=== PATIENT | male | born 1935 | race Caucasian/White ===

== ENCOUNTER 2017-01-28 18:30 | Emergency (ER) | payer MEDICARE, BC ==
[2017-01-28] MEDS ORDERED: cloNIDine HCL 0.2 MG TAB PO STA (19:39)
[2017-01-28 20:01] VITALS: RESP 18
--- NOTE | 2017-01-28 20:13 | XR ---
EXAMINATION TYPE: XR abdomen acute w cxr DATE OF EXAM: 01/28/2017 COMPARISON: NONE HISTORY: Pain TECHNIQUE: Single view of the chest and 2 views of the abdomen are submitted. FINDINGS: Single view of the chest fails demonstrate evidence for acute pulmonary disease. There is no evidence for pneumoperitoneum. The bowel gas pattern is unremarkable as there is air throughout nondilated small and large bowel. No sizeable air fluid levels.No mass effects are seen. No unusual calcifications. IMPRESSION: 1. Nonspecific nonobstructive bowel gas pattern. Mild fecal stasis.
--- NOTE | 2017-01-28 21:39 | ED ---
General Adult HPI - General Chief complaint: Abdominal Pain Stated complaint: neck pain Time Seen by Provider: 01/28/17 19:12 Source: patient, RN notes reviewed Mode of arrival: ambulatory Limitations: no limitations - History of Present Illness Initial comments: 81-year-old male presenting with chief complaint of abdominal pain. Patient states he had abdominal pain approximately 2 days ago. Pain is currently resolved. At that time he was constipated and straining to have a bowel movement. Patient does have history of chronic constipation secondary to pain medication which she takes for his chronic neck pain. He denies any nausea or vomiting. Patient denies chest pain or shortness of breath. He has taken stool softeners in the past but is not currently taking any. Patient also complains of neck pain which is chronic in nature, patient states he was previously relieved by Vicodin but that is no longer working. Patient denies fever or chills. He was evaluated at the [facility] for anxiety earlier in the day. - Related Data Home Medications Medication Instructions Recorded Confirmed Amiodarone [Cordarone] 200 mg PO HS 01/27/14 01/28/17 Aspirin 81 mg PO DAILY 01/27/14 01/28/17 Potassium Chloride [Klor-Con 10] 10 meq PO HS 01/27/14 01/28/17 Simvastatin [Zocor] 20 mg PO HS 01/27/14 01/28/17 ALPRAZolam [Xanax] 0.5 mg PO TID 01/28/17 01/28/17 Furosemide [Lasix] 20 mg PO DAILY 01/28/17 01/28/17 Losartan/Hydrochlorothiazide 1 tab PO HS 01/28/17 01/28/17 [Losartan-Hctz 100-12.5 mg Tab] Minoxidil [Loniten] 2.5 mg PO DAILY 01/28/17 01/28/17 Mirtazapine [Remeron] 45 mg PO HS 01/28/17 01/28/17 Spironolactone [Aldactone] 25 mg PO DAILY 01/28/17 01/28/17 Testosterone [Androgel 1.62% Gel 2.5 gram TOPICAL DAILY 01/28/17 01/28/17 Packet] amLODIPine [Norvasc] 5 mg PO BID 01/28/17 01/28/17 cloNIDine HCL 0.3 mg PO DAILY 01/28/17 01/28/17 hydrALAZINE HCL [Apresoline] 50 mg PO TID 01/28/17 01/28/17 Previous Rx's Medication Instructions Recorded Polyethylene Glycol 3350 [Miralax] 17 gm PO DAILY #527 gm 01/28/17 Allergies Allergy/AdvReac Type Severity Reaction Status Date / Time Beta-Blockers Allergy Unknown Verified 01/28/17 19:11 (Beta-Adrenergic Bloc Review of Systems ROS Statement: Those systems with pertinent positive or pertinent negative responses have been documented in the HPI. ROS Other: All systems not noted in ROS Statement are negative. Constitutional: Denies: fever, chills Respiratory: Denies: cough Cardiovascular: Denies: chest pain, palpitations Endocrine: Denies: fatigue Gastrointestinal: Reports: abdominal pain, constipation. Denies: vomiting, diarrhea Neurological: Denies: headache Past Medical History Past Medical History: GERD/Reflux, Hyperlipidemia, Hypertension, Myocardial Infarction ([place]) Additional Past Medical History / Comment(s): TRIP CABG IN , DEBIF/PM IN 2011 ; NECK PAIN Last Myocardial Infarction Date:: 06/29/1998 History of Any Multi-Drug Resistant Organisms: None Reported Past Surgical History: Coronary Bypass/CABG, Joint Replacement Additional Past Surgical History / Comment(s): left knee Past Anesthesia/Blood Transfusion Reactions: No Reported Reaction Type of Cardiac Device: Unknown Device Placement Date:: 02/28/2012 Past Psychological History: No Psychological Hx Reported Smoking Status: Former smoker Past Alcohol Use History: None Reported Past Drug Use History: None Reported General Exam Limitations: no limitations General appearance: alert, in no apparent distress Head exam: Present: atraumatic, normocephalic Eye exam: Present: normal appearance, PERRL. Absent: scleral icterus ENT exam: Present: normal exam, mucous membranes moist Neck exam: Present: normal inspection, full ROM. Absent: tenderness Respiratory exam: Present: normal lung sounds bilaterally. Absent: respiratory distress Cardiovascular Exam: Present: regular rate, normal rhythm GI/Abdominal exam: Present: soft. Absent: distended, tenderness, guarding, rebound Extremities exam: Present: normal inspection, normal capillary refill. Absent: pedal edema Neurological exam: Present: alert, oriented X3. Absent: motor sensory deficit Psychiatric exam: Present: normal affect, normal mood Skin exam: Present: warm, dry Course Vital Signs 01/28/17 01/28/1701/28/17 18:53 20:00 21:23 Temperature 98.2 F Pulse Rate 89 76 80 Respiratory 20 18 18 Rate Blood Pressure 185/80 169/80 171/80 O2 Sat by Pulse 97 98 95 Oximetry - Reevaluation(s) Reevaluation #1: 01/28/17 21:34 Patient was evaluated, repeat vitals were obtained given his blood pressure on presentation. Patient was given a dose of oral clonidine which is his normal home medication and repeat blood pressure was improved. Medical Decision Making - Medical Decision Making 81-year-old male presenting for evaluation of abdominal pain. Pain was 2 days ago and associated with straining during a bowel movement. Pain is currently resolved. Abdominal examination is unremarkable. Blood pressure was initially high in triage, he was given his normal dose of clonidine and repeat blood pressures improved. Patient remains asymptomatic in the emergency department. No nausea or vomiting. Other vital signs are stable. Patient also complains of neck pain which is chronic and unchanged today. X-ray of the abdomen does show significant retained feces. Patient will be prescribed MiraLAX and is encouraged to follow up with his primary care physician. Return to the emergency department with worsening symptoms. Disposition Clinical Impression: Abdominal pain Disposition: HOME SELF-CARE Condition: Good Instructions: Abdominal Pain (ED), Constipation (ED) Prescriptions: Polyethylene Glycol 3350 [Miralax] 17 gm PO DAILY #527 gm Referrals: Gunner Peña MD [Primary Care Provider] - 1-2 days
[2017-01-28 22:00] VITALS: BP 134/87; PULSE 87; TEMP 97.8
== END 2017-01-28 22:00 | disposition home or self-care (01) ==
LOC: EC 18:30
DX: R10.9 Unspecified abdominal pain (principal); I10 Essential (primary) hypertension; E78.5 Hyperlipidemia, unspecified; Z87.891 Personal history of nicotine dependence; Z88.8 Allergy status to other drugs, medicaments and biological substances; Z79.82 Long term (current) use of aspirin; Z79.899 Other long term (current) drug therapy
CPT/HCPCS: 74022; 99284

== ENCOUNTER → 2018-03-07 | Outpatient (CLI) | payer MEDICARE, BC ==
--- NOTE | 2018-03-08 07:41 | CT ---
EXAMINATION TYPE: CT abdomen pelvis w con DATE OF EXAM: 03/07/2018 COMPARISON: None HISTORY: Difficulty urinating for 1-[address] DLP: 1651 mGycm Automated exposure control for dose reduction was used. TECHNIQUE: Helical acquisition of images was performed from the lung bases through the pelvis. CONTRAST: Performed with Oral Contrast and with IV Contrast, patient injected with 100 mL of Isovue 300. FINDINGS: LUNG BASES: Scattered subsegmental atelectasis is seen at the lung bases. Heart is enlarged. LIVER/GB: Liver enhances homogeneously. There is slight hyperemia of the gallbladder wall, likely an incidental finding as there is no right upper quadrant fat stranding changes or dilation of the commo n bile duct. PANCREAS: Pancreatic parenchyma enhances homogeneously. SPLEEN: No significant abnormality is seen. Small splenules are seen adjacent to the seneca spleen. ADRENALS: No nodularity or thickening. KIDNEYS: Within the left perirenal space there is an approximately 10.6 x 5.2 x 13.1 cm multiloculate d fluid collection with a hyperdense, likely enhancing septa seen on sagittal image 59 and axial imag e 46. A portion of this abuts the renal cortex on axial image 42, however predominantly this appears separate from the kidney within the retroperitoneum. This is predominantly fluid attenuated. Multiple other renal cysts are noted on the left measuring up to 8.4 and 9.5 cm. Some of these extend into th e renal sinus but are nonobstructive as there is no evidence of left-sided hydronephrosis or asymmetr ic enhancement of the kidneys. Mild perinephric fat stranding is seen on the right with no evidence o f hydronephrosis or focal right renal lesion. FREE AIR: No free air is visualized. URINARY BLADDER: A large amount of air are seen within the urinary bladder and there is mild left la teral urinary bladder wall thickening on series 3 image 77 measuring up to 5 mm. No surrounding infla mmatory changes identified. No direct fistulous communication is seen with adjacent bowel. ADENOPATHY: No greater than 1 cm short axis lymph node within the abdomen or pelvis. OSSEOUS STRUCTURES: Multilevel moderate degenerative change of the spine is seen. BOWEL: No dilated large or small bowel. No gross evidence of fistula. OTHER: Chronic infrarenal aortic dissection begins just below the renal arteries on series 3 image 37 and does not appear to extend into the common iliac arteries. Abdominal aorta measures up to 3.3 cm and is slightly dilated. IMPRESSION: 1. LEFT RETROPERITONEAL MULTILOCULATED 10.6 CM CYSTIC LESION WITH A HYPERDENSE LIKELY ENHANCING SEPTA . ALTHOUGH THIS COULD POSSIBLY CONNECT TO THE LEFT KIDNEY AND SIMPLY RELATE TO A LARGE EXOPHYTIC CYST THE ALTERNATIVE POSSIBILITY OF CYSTIC RETROPERITONEAL NEOPLASM SHOULD BE CONSIDERED GIVEN ONLY A THI N POSSIBLE CONNECTION TO THE LEFT KIDNEY AND ASPIRATION WITH ATTENTION TO THE INFERIOR SEPTAL SHOULD BE CONSIDERED. 2. LARGE AMOUNT OF AIR WITHIN THE URINARY BLADDER WITHOUT EVIDENCE OF ENTEROVESICULAR OR COLOVESICULA R FISTULA. MILD URINARY BLADDER WALL THICKENING IS ALSO APPRECIATED AND AIR COULD RELATE TO CYSTITIS. 3. CHRONIC INFRARENAL AORTIC DISSECTION AND MILD AORTIC ANEURYSMAL DILATATION AT THIS LEVEL MEASURING 3.3 CM.
== END | disposition home or self-care (01) ==
LOC: RADCTMAIN 13:45
PROVIDERS: ATTEND Urology
DX: K68.9 Other disorders of retroperitoneum (principal)
CPT/HCPCS: 82565; 84520; 74177; 36415; Q9967

== ENCOUNTER 2018-04-16 14:15 | Inpatient (IN) | payer MEDICARE, BC ==
--- NOTE | 2018-04-16 14:27 | ED ---
SOB HPI - General Chief Complaint: Shortness of Breath Stated Complaint: Chest pain Time Seen by Provider: 04/16/18 14:15 Source: patient, EMS, RN notes reviewed Mode of arrival: EMS Limitations: no limitations - History of Present Illness Initial Comments: This is a 82-year-old male was brought in by EMS after presenting to his doctor' s office with complaints of one week of shortness of breath and exertional dyspnea with some chest pain. He currently is chest pain-free. He denies any fevers chills or sweats he has a history of an [place] 41 years ago. No other complaints at this time MD Complaint: shortness of breath, chest pain - Related Data Home Medications Medication Instructions Recorded Confirmed Amiodarone [Cordarone] 200 mg PO DAILY 01/27/14 04/16/18 Potassium Chloride [Klor-Con 10] 10 meq PO BID 01/27/14 04/16/18 Simvastatin [Zocor] 20 mg PO HS 01/27/14 04/16/18 ALPRAZolam [Xanax] 0.5 mg PO BID PRN 01/28/17 04/16/18 amLODIPine [Norvasc] 5 mg PO BID 01/28/17 04/16/18 Carvedilol [Coreg] 12.5 mg PO BID 04/16/18 04/16/18 Cholecalciferol [Vitamin D3] 1,000 unit PO DAILY 04/16/18 04/16/18 Fexofenadine HCl [Laura Allergy] 180 mg PO DAILY PRN 04/16/18 04/16/18 Flaxseed Oil [Jackson-3 Flaxseed Oil] 1,000 mg PO DAILY 04/16/18 04/16/18 Fluticasone Nasal [place] [Flonase 2 spr EA NOSTRIL DAILY 04/16/18 04/16/18 Nasal [place]] Fluticasone Nasal [place] [Flonase 2 sprays EA NOSTRIL DAILY 04/16/18 04/16/18 Nasal [place]] Furosemide [Lasix] 40 mg PO BID 04/16/18 04/16/18 Ibuprofen/Diphenhydramine HCl 1 cap PO HS PRN 04/16/18 04/16/18 [Advil Pm Liqui-Gels] L.acidoph,Paracasei, B.lactis 1 cap PO HS 04/16/18 04/16/18 [Probiotic] Linaclotide [Linzess] 72 mcg PO DAILY 04/16/18 04/16/18 Losartan Potassium 100 mg PO DAILY 04/16/18 04/16/18 Mirtazapine [Remeron] 15 mg PO HS 04/16/18 04/16/18 Multivitamins, Thera [Multivitamin 1 tab PO DAILY 04/16/18 04/16/18 (formulary)] Nebivolol [Bystolic] 5 mg PO DAILY 04/16/18 04/16/18 Sertraline [Zoloft] 50 mg PO DAILY 04/16/18 04/16/18 Simethicone 80 mg PO QID PRN 04/16/18 04/16/18 Tamsulosin [Flomax] 0.4 mg PO DAILY 04/16/18 04/16/18 hydrALAZINE HCL [Apresoline] 100 mg PO TID 04/16/18 04/16/18 Allergies Allergy/AdvReac Type Severity Reaction Status Date / Time Beta-Blockers Allergy Unknown Verified 04/16/18 14:49 (Beta-Adrenergic Bloc NORCO AdvReac ADDICTIVE Uncoded 04/16/18 14:49 Review of Systems ROS Statement: Those systems with pertinent positive or pertinent negative responses have been documented in the HPI. ROS Other: All systems not noted in ROS Statement are negative. Past Medical History Past Medical History: GERD/Reflux, Hyperlipidemia, Hypertension, Myocardial Infarction ([place]) Additional Past Medical History / Comment(s): TRIP CABG IN , DEBIF/PM IN 2011 ; NECK PAIN Last Myocardial Infarction Date:: 06/29/1998 History of Any Multi-Drug Resistant Organisms: None Reported Past Surgical History: Coronary Bypass/CABG, Joint Replacement Additional Past Surgical History / Comment(s): left knee Past Anesthesia/Blood Transfusion Reactions: No Reported Reaction Type of Cardiac Device: Unknown Device Placement Date:: 02/28/2012 Past Psychological History: No Psychological Hx Reported Smoking Status: Former smoker Past Alcohol Use History: None Reported Past Drug Use History: None Reported General Exam - General Exam Comments Initial Comments: This is a well-developed well-nourished awake alert oriented 3 male Limitations: no limitations General appearance: alert, in no apparent distress Head exam: Present: atraumatic, normocephalic, normal inspection Eye exam: Present: normal appearance, PERRL, EOMI. Absent: scleral icterus, conjunctival injection, periorbital swelling ENT exam: Present: normal exam, mucous membranes moist Neck exam: Present: normal inspection. Absent: tenderness, meningismus, lymphadenopathy Respiratory exam: Present: normal lung sounds bilaterally. Absent: respiratory distress, wheezes, rales, rhonchi, stridor Cardiovascular Exam: Present: regular rate, normal rhythm, normal heart sounds. Absent: systolic murmur, diastolic murmur, rubs, gallop, clicks GI/Abdominal exam: Present: soft, normal bowel sounds. Absent: distended, tenderness, guarding, rebound, rigid Extremities exam: Present: normal inspection, full ROM, normal capillary refill. Absent: tenderness, pedal edema, joint swelling, calf tenderness Back exam: Present: normal inspection Neurological exam: Present: alert, oriented X3, CN II-XII intact Psychiatric exam: Present: normal affect, normal mood Skin exam: Present: warm, dry, intact, normal color. Absent: rash Course Vital Signs 04/16/18 04/16/18 14:18 14:26 Temperature 97.8 F Pulse Rate 66 Respiratory 16 16 Rate Blood Pressure 154/80 O2 Sat by Pulse 100 Oximetry Medical Decision Making - Medical Decision Making Patient had no further chest pains his arrival. Patient will be admitted I did discuss case with the admitting physician. - Lab Data Result diagrams: 04/16/18 14:34 04/16/18 14:34 Lab Results 04/16/18 04/16/18 04/16/18 Range/Units 14:34 14:34 14:34 WBC 6.3 (3.8-10.6) k/uL RBC 3.85 L (4.30-5.90) m/uL Hgb 11.2 L (13.0-17.5) gm/dL Hct 33.0 L (39.0-53.0) % MCV 85.8 (80.0-100.0) fL MCH 29.1 (25.0-35.0) pg MCHC 33.9 (31.0-37.0) g/dL RDW 15.6 H (11.5-15.5) % Plt Count 152 (150-450) k/uL Neutrophils % 80 % Lymphocytes % 10 % Monocytes % 7 % Eosinophils % 2 % Basophils % 0 % Neutrophils # 5.1 (1.3-7.7) k/uL Lymphocytes # 0.6 L (1.0-4.8) k/uL Monocytes # 0.4 (0-1.0) k/uL Eosinophils # 0.1 (0-0.7) k/uL Basophils # 0.0 (0-0.2) k/uL PT (9.0-12.0) sec INR (<1.2) APTT (22.0-30.0) sec Sodium 125 L (137-145) mmol/L Potassium 4.3 (3.5-5.1) mmol/L Chloride 94 L (98-107) mmol/L Carbon Dioxide 18 L (22-30) mmol/L Anion Gap 13 mmol/L BUN 15 (9-20) mg/dL Creatinine 1.04 (0.66-1.25) mg/dL Est GFR (CKD-EPI)AfAm 77 (>60 ml/min/1.73 sqM) Est GFR (CKD-EPI)NonAf 67 (>60 ml/min/1.73 sqM) Glucose 104 H (74-99) mg/dL Calcium 8.6 (8.4-10.2) mg/dL Magnesium 1.9 (1.6-2.3) mg/dL Total Bilirubin 0.8 (0.2-1.3) mg/dL AST 24 (17-59) U/L ALT 43 (21-72) U/L Alkaline Phosphatase 63 (38-126) U/L Total Creatine Kinase 83 (55-170) U/L CK-MB (CK-2) 2.0 (0.0-2.4) ng/mL CK-MB (CK-2) Rel Index 2.4 Troponin I 0.033 (0.000-0.034) ng/mL Total Protein 6.2 L (6.3-8.2) g/dL Albumin 3.8 (3.5-5.0) g/dL 04/16/18 Range/Units 14:34 WBC (3.8-10.6) k/uL RBC (4.30-5.90) m/uL Hgb (13.0-17.5) gm/dL Hct (39.0-53.0) % MCV (80.0-100.0) fL MCH (25.0-35.0) pg MCHC (31.0-37.0) g/dL RDW (11.5-15.5) % Plt Count (150-450) k/uL Neutrophils % % Lymphocytes % % Monocytes % % Eosinophils % % Basophils % % Neutrophils # (1.3-7.7) k/uL Lymphocytes # (1.0-4.8) k/uL Monocytes # (0-1.0) k/uL Eosinophils # (0-0.7) k/uL Basophils # (0-0.2) k/uL PT 11.3 (9.0-12.0) sec INR 1.2 H (<1.2) APTT 38.4 H (22.0-30.0) sec Sodium (137-145) mmol/L Potassium (3.5-5.1) mmol/L Chloride (98-107) mmol/L Carbon Dioxide (22-30) mmol/L Anion Gap mmol/L BUN (9-20) mg/dL Creatinine (0.66-1.25) mg/dL Est GFR (CKD-EPI)AfAm (>60 ml/min/1.73 sqM) Est GFR (CKD-EPI)NonAf (>60 ml/min/1.73 sqM) Glucose (74-99) mg/dL Calcium (8.4-10.2) mg/dL Magnesium (1.6-2.3) mg/dL Total Bilirubin (0.2-1.3) mg/dL AST (17-59) U/L ALT (21-72) U/L Alkaline Phosphatase (38-126) U/L Total Creatine Kinase (55-170) U/L CK-MB (CK-2) (0.0-2.4) ng/mL CK-MB (CK-2) Rel Index Troponin I (0.000-0.034) ng/mL Total Protein (6.3-8.2) g/dL Albumin (3.5-5.0) g/dL - EKG Data -: EKG Interpreted by Me (ABG total paced rhythm with prolonged AV conduction the rate was 60 [place] inte) - Radiology Data Radiology results: report reviewed (No definite acute findings on imaging), image reviewed Critical Care Time Critical Care Time: Yes Critical Care Time: 31 minutes of critical care time which includes initial monitoring the EMS run and discussed with paramedics she physical labs x-rays reevaluation patient response to any therapy. Discussed with the admitting physician discussed with the patient admission orders and documentation of the above Disposition Clinical Impression: Chest pain, Unstable angina Disposition: ADMITTED IP TO THIS HOSP Condition: Stable Referrals: Gunner Peña MD [Primary Care Provider] - 1-2 days
[2018-04-16 14:43] LABS: Basophils % (A) 0 %; Eosinophils # (A) 0.1 k/uL (0-0.7); Eosinophils % (A) 2 %; HGB 11.2 gm/dL (13.0-17.5); Lymphocytes # (A) 0.6 k/uL (1.0-4.8); Lymphocytes % (A) 10 %; MCH 29.1 pg (25.0-35.0); MCHC 33.9 g/dL (31.0-37.0); MCV 85.8 fL (80.0-100.0); Mean Platelet Volume 6.7; Monocytes # (A) 0.4 k/uL (0-1.0); Monocytes % (A) 7 %; Neutrophils # (A) 5.1 k/uL (1.3-7.7); Neutrophils % (A) 80 %; Platelet Count 152 k/uL (150-450); RBC 3.85 m/uL (4.30-5.90); RDW 15.6 % (11.5-15.5); WBC 6.3 k/uL (3.8-10.6)
[2018-04-16 14:54] LABS: Albumin 3.8 g/dL (3.5-5.0); Calcium 8.6 mg/dL (8.4-10.2); Magnesium 1.9 mg/dL (1.6-2.3); Total Bilirubin 0.8 mg/dL (0.2-1.3); Total Protein 6.2 g/dL (6.3-8.2)
[2018-04-16 14:55] LABS: INR 1.2 (<1.2); Partial Thromboplastin Time 38.4 sec (22.0-30.0); Prothrombin Time 11.3 sec (9.0-12.0)
[2018-04-16 15:03] LABS: Potassium 4.3 mmol/L (3.5-5.1)
--- NOTE | 2018-04-16 15:10 | XR ---
EXAMINATION TYPE: XR chest 2V DATE OF EXAM: 04/16/2018 COMPARISON: Prior chest x-ray 03/01/2014, 01/28/2017 HISTORY: Chest pain and shortness of breath TECHNIQUE: Frontal and lateral views of the chest are obtained on 3 images. FINDINGS: Patient is rotated and post median sternotomy. Heart size appears increased. Marked arthro natalia present within the shoulders. Defibrillator is present in the left pectoral region, leads are p resent within the right ventricle, coronary sinus, right atrium. Coronary artery calcifications are p resent. Probable scarring present at the lingula, left lung base. No evident pneumothorax or pleural effusion. Interstitium appears somewhat prominent. The aorta is dense. IMPRESSION: There may be some basilar atelectasis or scarring, correlate to exclude volume overload, pulmonary venous hypertension and interstitial edema. Follow-up as indicated.
[2018-04-16 15:28] LABS: Troponin I 0.033 ng/mL (0.000-0.034)
[2018-04-16] MEDS ORDERED: HEPARIN SODIUM,PORCINE 5,000 UNIT/ML 1 ML VIAL IV ONE (17:20)
[2018-04-16] MEDS ORDERED: NITROGLYCERIN SL TABS 0.4 MG TAB SUBLINGUAL PRN (17:20)
[2018-04-16] MEDS ORDERED: ALPRAZolam 0.5 MG TAB PO PRN (17:23)
[2018-04-16] MEDS ORDERED: LORATADINE 10 MG TAB PO PRN (17:23)
[2018-04-16] MEDS ORDERED: SIMETHICONE 80 MG CHEWABLE PO PRN (17:23)
[2018-04-16] MEDS ORDERED: diphenhydrAMINE 25 MG CAP PO PRN (17:56)
[2018-04-16] MEDS: HEPARIN SOD,PORK IN 0.45% NACL 25,000 UNIT in 0.45% NACL 1 500ML.BAG IV SCH (18:09)
[2018-04-16] MEDS: SODIUM CHLORIDE 0.9% 1,000 ML IV SCH (18:14)
[2018-04-16] MEDS: NITROGLYCERIN OINT 1 INCH/GM PACKET TOPICAL SCH (18:31)
--- NOTE | 2018-04-16 18:43 | P.HPIM ---
History of Present Illness H&P Date: 04/16/18 Chief Complaint: shortness of breath The patient is an 82-year-old male with past medical history of hypertension, hyperlipidemia, CAD status post CABG in 1997 and subsequent biventricular pacemaker in 2011, presented to the ED with complaints of gradually worsening shortness of breath and intermittent right-sided chest pain for past 1 week. The patient notes that the pain is intermittent, nonradiating, lasts seconds to minutes at a time, not associated with exertion, unable to characterize, 8 out of 10, with no alleviating or exacerbating factors. The last episode of chest pain was earlier this morning, and has not recurred since. He endorsed a long- standing history of bilateral lower extremity edema but denied recent worsening. Furthermore he uses 2 pillows due to cervical spine osteoarthritis and denied orthopnea or PND. He further denied fever, chills, cough, abdominal pain, nausea, vomiting, diaphoresis, diarrhea, the patient, dysuria, dizziness, or palpitations. Review of Systems Pertinent positives and negatives as discussed in HPI, a complete review of systems was performed and all other systems are negative. Past Medical History Past Medical History: GERD/Reflux, Hyperlipidemia, Hypertension, Myocardial Infarction (MS) Additional Past Medical History / Comment(s): TRIP CABG IN , DEBIF/PM IN 2011 ; NECK PAIN Last Myocardial Infarction Date:: 06/29/1998 History of Any Multi-Drug Resistant Organisms: None Reported Past Surgical History: Coronary Bypass/CABG, Joint Replacement Additional Past Surgical History / Comment(s): left knee Past Anesthesia/Blood Transfusion Reactions: No Reported Reaction Type of Cardiac Device: Unknown Device Placement Date:: 02/28/2012 Past Psychological History: No Psychological Hx Reported Smoking Status: Former smoker Past Alcohol Use History: None Reported Past Drug Use History: None Reported Medications and Allergies Home Medications Medication Instructions Recorded Confirmed Type Amiodarone [Cordarone] 200 mg PO DAILY 01/27/14 04/16/18 History Potassium Chloride [Klor-Con 10] 10 meq PO BID 01/27/14 04/16/18 History Simvastatin [Zocor] 20 mg PO HS 01/27/14 04/16/18 History ALPRAZolam [Xanax] 0.5 mg PO BID PRN 01/28/17 04/16/18 History amLODIPine [Norvasc] 5 mg PO BID 01/28/17 04/16/18 History Carvedilol [Coreg] 12.5 mg PO BID 04/16/18 04/16/18 History Cholecalciferol [Vitamin D3] 1,000 unit PO DAILY 04/16/18 04/16/18 History Fexofenadine HCl [Laura Allergy] 180 mg PO DAILY PRN 04/16/18 04/16/18 History Flaxseed Oil [Humphreys-3 Flaxseed Oil] 1,000 mg PO DAILY 04/16/18 04/16/18 History Fluticasone Nasal [place] [Flonase 2 spr EA NOSTRIL DAILY 04/16/18 04/16/18 History Nasal [place]] Fluticasone Nasal [place] [Flonase 2 sprays EA NOSTRIL DAILY 04/16/18 04/16/18 History Nasal [place]] Furosemide [Lasix] 40 mg PO BID 04/16/18 04/16/18 History Ibuprofen/Diphenhydramine HCl 1 cap PO HS PRN 04/16/18 04/16/18 History [Advil Pm Liqui-Gels] L.acidoph,Paracasei, B.lactis 1 cap PO HS 04/16/18 04/16/18 History [Probiotic] Linaclotide [Linzess] 72 mcg PO DAILY 04/16/18 04/16/18 History Losartan Potassium 100 mg PO DAILY 04/16/18 04/16/18 History Mirtazapine [Remeron] 15 mg PO HS 04/16/18 04/16/18 History Multivitamins, Thera [Multivitamin 1 tab PO DAILY 04/16/18 04/16/18 History (formulary)] Nebivolol [Bystolic] 5 mg PO DAILY 04/16/18 04/16/18 History Sertraline [Zoloft] 50 mg PO DAILY 04/16/18 04/16/18 History Simethicone 80 mg PO QID PRN 04/16/18 04/16/18 History Tamsulosin [Flomax] 0.4 mg PO DAILY 04/16/18 04/16/18 History hydrALAZINE HCL [Apresoline] 100 mg PO TID 04/16/18 04/16/18 History Allergies Allergy/AdvReac Type Severity Reaction Status Date / Time Beta-Blockers Allergy Unknown Verified 04/16/18 14:49 (Beta-Adrenergic Bloc NORCO AdvReac ADDICTIVE Uncoded 04/16/18 14:49 Physical Exam Vitals: Vital Signs Temp Pulse Resp BP Pulse Ox 04/16/18 17:58 60 18 171/80 96 04/16/18 14:26 16 04/16/18 14:18 97.8 F 66 16 154/80 100 Intake and Output 04/16/18 04/16/18 04/16/18 06:59 14:59 22:59 Other: Weight 96.615 kg General: non toxic, no distress, appears at stated age, normal weight Derm: no unusual rashes/lesions no unusual ecchymoses, warm, dry Head: atraumatic, normocephalic, symmetric Eyes: EOMI, no lid lag, anicteric sclera, pupils equal round reactive to light ENT: Nose and ears atraumatic, no thrush, no pharyngeal erythema Neck: DESHAWN slowly rising pulsating neck veins, no thyromegaly, no cervical lymphadenopathy, trachea midline, supple Mouth: no lip lesion, mucus membranes moist Cardiovascular: S1S2 reg, systolic murmur appreciated, positive posterior tibial pulse bilateral, no edema, capillary refill less than 2 seconds Lungs: CTA bilateral, no rhonchi, no rales , no accessory muscle use Abdominal: soft, nontender to palpation, no guarding, no appreciable organomegaly, normal bowel sounds Ext: no gross muscle atrophy, muscle strength 5 out of 5 in all 4 extremities grossly, no contractures, Neuro: CN II-XI grossly intact, light touch intact all 4 extremities, finger to nose within normal limits, Psych: Alert, oriented, appropriate affect Results CBC & Chem 7: 04/16/18 14:34 04/16/18 14:34 Labs: Abnormal Lab Results - Last 24 Hours (Table) 04/16/18 04/16/18 04/16/18 Range/Units 14:34 14:34 14:34 RBC 3.85 L (4.30-5.90) m/uL Hgb 11.2 L (13.0-17.5) gm/dL Hct 33.0 L (39.0-53.0) % RDW 15.6 H (11.5-15.5) % Lymphocytes # 0.6 L (1.0-4.8) k/uL INR 1.2 H (<1.2) APTT 38.4 H (22.0-30.0) sec Sodium 125 L (137-145) mmol/L Chloride 94 L (98-107) mmol/L Carbon Dioxide 18 L (22-30) mmol/L Glucose 104 H (74-99) mg/dL Total Protein 6.2 L (6.3-8.2) g/dL Assessment and Plan Plan: Chest pain and SOB, r/o ACS (Unstable Angina) - EKG w/ AV pacing - Troponin 0.033, will trend - Obtain Echocardiogram, Tele monitoring, Cardiology consult - C/w Heparin infusion - C/w Aspirin, Plavix, and Lipitor - Nitroglycerin prn HTN - C/w Losartan 100 mg po qd, Hydralazine 100 mg PO TID, Lasix 40 mg po bid, Coreg 12.5 mg po bid, and Norvasc 5 mg qd HLD - C/w Lipitor BPH - C/w Flomax DVT//GI prophylaxis - Heparin infusion - No indication for GI prophylaxis The patient is admitted with an anticipated greater than 2 midnight stay for evaluation of chest pain CODE STATUS:Full-code Discussed with: Patient, Daughter Anticipated discharge date: 04/19/[address]: Home A total of 70 minutes was spent on the care of this complex patient more than 50 % of the time was spent in counseling and care coordination.
[2018-04-16] MEDS: CLOPIDOGREL 75 MG TAB PO SCH (20:36)
[2018-04-16 22:05] LABS: Creatine Kinase MB 2.2 ng/mL (0.0-2.4)
[2018-04-16 22:21] LABS: Troponin I 0.059 ng/mL (0.000-0.034)
[2018-04-16] MEDS: IBUPROFEN 200 MG TAB PO PRN (22:52)
[2018-04-16] MEDS: CARVEDILOL 12.5 MG TAB PO SCH (22:53)
[2018-04-16] MEDS: FUROSEMIDE 40 MG TAB PO SCH (22:53)
[2018-04-16] MEDS: LACTOBACILLUS ACIDOPH & BULGAR 1 EACH PACKET PO SCH (22:53)
[2018-04-16] MEDS: ATORVASTATIN 10 MG TAB PO SCH (22:53)
[2018-04-16] MEDS: MIRTAZAPINE 15 MG TAB PO SCH (22:54)
[2018-04-16] MEDS: POTASSIUM CHLORIDE ER 10 MEQ TAB.ER.PRT PO SCH (22:54)
[2018-04-16] MEDS: amLODIPine 5 MG TAB PO SCH (22:55)
[2018-04-16] MEDS: hydrALAZINE HCL 50 MG TAB PO SCH (22:58)
--- NOTE | 2018-04-16 23:28 | US ---
EXAMINATION TYPE: US carotid duplex BILAT DATE OF EXAM: 04/16/2018 COMPARISON: NONE CLINICAL HISTORY: Neck vein distension. Neck vein distension memory loss. EXAM MEASUREMENTS: RIGHT: Peak Systolic Velocity (PSV) cm/sec ----- Right CCA: 59.5 ----- Right ICA: 126.0 ----- Right ECA: 60.9 ICA/CCA ratio: 2.1 RIGHT: End Diastole cm/sec ----- Right CCA: 14.4 ----- Right ICA: 21.5 ----- Right ECA: 0 LEFT: Peak Systolic Velocity (PSV) cm/sec ----- Left CCA: 53.8 ----- Left ICA: 71.4 ----- Left ECA: 80.1 ICA/CCA ratio: 1.3 LEFT: End Diastole cm/sec ----- Left CCA: 9.8 ----- Left ICA: 15.3 ----- Left ECA: 6.3 VERTEBRALS (direction of flow): Right Vertebral: Antegrade Left Vertebral: Antegrade Rhythm: Normal Bilateral plaque in bulbs. No significant stenosis seen IMPRESSION: There is antegrade flow in the vertebral arteries. The images and measurements suggest l ess than 25% stenosis in both internal carotid arteries. Criteria for Assigning % of Stenosis / Diameter reduction (Estimation based on the indirect measurements of the internal carotid artery velocities (ICA PSV). 1. Normal (no stenosis)=ICA PSV < 125 cm/s: ratio < 2.0: ICA EDV<40 cm/s. 2. Less than 50% stenosis=ICA PSV < 125 cm/s: ratio < 2.0: ICA EDV<40 cm/s. 3. 50 to 69% stenosis=ICA PSV of 125 to 230 cm/s: ration 2.0 ? 4.0: ICA EDV 40-100 cm/s. 4. Greater than 70% stenosis to near occlusion= ICA PSV > 230 cm/s: ratio > 4.0: ICA EDV > 100 cm/s. 5. Near occlusion= ICA PSV velocities may be low or undetectable: variable ratio and ICA EDV. 6. Total occlusion=unable to detect flow.
[2018-04-17] MEDS: NITROGLYCERIN OINT 1 INCH/GM PACKET TOPICAL SCH ×4 (01:58→17:07)
[2018-04-17 02:12] VITALS: BMI 28.8
[2018-04-17 02:55] LABS: HCT 33.8 % (39.0-53.0); HGB 11.3 gm/dL (13.0-17.5); MCH 28.9 pg (25.0-35.0); MCHC 33.5 g/dL (31.0-37.0); MCV 86.3 fL (80.0-100.0); Mean Platelet Volume 7.5; Platelet Count 150 k/uL (150-450); RBC 3.91 m/uL (4.30-5.90); RDW 15.8 % (11.5-15.5); WBC 5.8 k/uL (3.8-10.6)
[2018-04-17 03:25] LABS: Creatine Kinase MB 2.3 ng/mL (0.0-2.4)
[2018-04-17 03:31] LABS: Troponin I 0.083 ng/mL (0.000-0.034)
[2018-04-17 03:37] LABS: Albumin 3.8 g/dL (3.5-5.0); Calcium 9.1 mg/dL (8.4-10.2); Potassium 3.9 mmol/L (3.5-5.1); Total Bilirubin 0.8 mg/dL (0.2-1.3); Total Protein 6.3 g/dL (6.3-8.2)
[2018-04-17] MEDS: CARVEDILOL 12.5 MG TAB PO SCH (08:25)
[2018-04-17] MEDS: amLODIPine 5 MG TAB PO SCH (08:25)
[2018-04-17] MEDS: POTASSIUM CHLORIDE ER 10 MEQ TAB.ER.PRT PO SCH ×2 (08:25→20:22)
[2018-04-17] MEDS: CLOPIDOGREL 75 MG TAB PO SCH (08:26)
[2018-04-17] MEDS: hydrALAZINE HCL 50 MG TAB PO SCH ×3 (08:26→21:11)
[2018-04-17] MEDS: FUROSEMIDE 40 MG TAB PO SCH ×2 (08:26→16:23)
[2018-04-17] MEDS: FLUTICASONE 50MCG/SPRAY NASAL 16GM EA NOSTRIL SCH ×2 (08:27→21:12)
[2018-04-17] MEDS: LINZESS 72 MCG PO SCH (08:29)
[2018-04-17] MEDS: ASPIRIN 325 MG TAB PO SCH (08:32)
[2018-04-17] MEDS: LOSARTAN 50 MG TAB PO SCH (08:43)
[2018-04-17] MEDS: AMIODARONE 200 MG TAB PO SCH (08:44)
[2018-04-17] MEDS: MULTIVITAMINS, THERA 1 EACH TAB PO SCH (08:44)
[2018-04-17] MEDS: TAMSULOSIN 0.4 MG CAP.ER.24H PO SCH (08:44)
[2018-04-17] MEDS: IBUPROFEN 200 MG TAB PO PRN (08:44)
[2018-04-17] MEDS: SERTRALINE 50 MG TAB PO SCH (08:44)
[2018-04-17] MEDS: CHOLECALCIFEROL 1,000 UNIT TAB PO SCH (08:45)
[2018-04-17] MEDS: NEBIVOLOL 5 MG TAB PO SCH (08:45)
--- NOTE | 2018-04-17 14:31 | P.PN ---
Subjective Progress Note Date: 04/17/18 The patient was seen and examined with daughter at the bedside. Patient denied having any further episodes of chest pain, or shortness of breath. He further denied any palpitations, dizziness, cough, fever, chills, abdominal pain, nausea , or vomiting. The patient is awaiting cardiology evaluation. Carotid duplex was negative. Troponin trended up from 0.033 to 0.0592 to 0.083. Objective - Vital Signs Vital signs: Vital Signs Temp 97.1 F L 04/17/18 11:01 Pulse 60 04/17/18 11:02 Resp 16 04/17/18 11:02 BP 158/72 04/17/18 11:01 Pulse Ox 100 04/17/18 11:01 Intake & Output 04/16/18 04/17/18 04/17/18 18:59 06:59 18:59 Intake Total 849.209 Output Total 1999 3300 Balance -1150.791 -3300 Weight 96.615 kg 92.487 kg Intake: Intake, IV Titration 249.209 Amount Heparin Sod,Pork in 0.45% 249.209 NaCl 25,000 unit In 0.45 % NaCl 1 500ml.bag @ 10. 35 UNITS/KG/HR 19.99 mls/ hr IV .Q24H [facility] Rx#: [id number] Oral 600 Output: Urine 1999 3300 Other: Voiding Method Urinal Urinal # Voids 3 1 - Exam General: Non-toxic, in no acute distress HEENT: NC/AT, anicteric sclerae, moist conjunctiva, no lid-lag, PERRLA, oropharynx clear, no erythema, exudates Cardiovascular: S1/S2 wnl, no murmurs, rubs, or gallops Lungs: Clear to auscultation, normal respiratory effort, no accessory muscle use Abdominal: Soft, nontender, non-distended, no guarding, rebound, or rigidity, normoactive bowel sounds Skin: Warm, dry Extremities: 1+ LE edema jc Psychiatric: Alert and oriented to person, place and time, appropriate affect, Intact judgment Neuro: CN II-XII grossly intact, no focal motor deficits - Labs CBC & Chem 7: 04/17/18 02:37 04/17/18 02:37 Labs: Abnormal Lab Results - Last 24 Hours (Table) 04/16/18 04/16/1804/16/18 Range/Units 14:34 14:34 14:34 RBC 3.85 L (4.30-5.90) m/uL Hgb 11.2 L (13.0-17.5) gm/dL Hct 33.0 L (39.0-53.0) % RDW 15.6 H (11.5-15.5) % Lymphocytes # 0.6 L (1.0-4.8) k/uL INR 1.2 H (<1.2) APTT 38.4 H (22.0-30.0) sec Sodium 125 L (137-145) mmol/L Chloride 94 L (98-107) mmol/L Carbon Dioxide 18 L (22-30) mmol/L Glucose 104 H (74-99) mg/dL Troponin I (0.000-0.034) ng/mL Total Protein 6.2 L (6.3-8.2) g/dL 04/16/18 04/17/18 04/17/18 Range/Units 21:09 02:37 02:37 RBC (4.30-5.90) m/uL Hgb (13.0-17.5) gm/dL Hct (39.0-53.0) % RDW (11.5-15.5) % Lymphocytes # (1.0-4.8) k/uL INR (<1.2) APTT (22.0-30.0) sec Sodium 128 L (137-145) mmol/L Chloride 94 L (98-107) mmol/L Carbon Dioxide 21 L (22-30) mmol/L Glucose (74-99) mg/dL Troponin I 0.059 H* 0.083 H* (0.000-0.034) ng/mL Total Protein (6.3-8.2) g/dL 04/17/18 04/17/18 Range/Units 02:37 02:37 RBC 3.91 L (4.30-5.90) m/uL Hgb 11.3 L (13.0-17.5) gm/dL Hct 33.8 L (39.0-53.0) % RDW 15.8 H (11.5-15.5) % Lymphocytes # (1.0-4.8) k/uL INR (<1.2) APTT 59.3 H (22.0-30.0) sec Sodium (137-145) mmol/L Chloride (98-107) mmol/L Carbon Dioxide (22-30) mmol/L Glucose (74-99) mg/dL Troponin I (0.000-0.034) ng/mL Total Protein (6.3-8.2) g/dL Assessment and Plan Plan: Chest pain and SOB, r/o ACS (Unstable Angina) - EKG w/ AV pacing - Troponin trending up from 0.033 to 0.059 to 0.083 - Pending Echocardiogram and Cardiology consult - C/w Heparin infusion - C/w Aspirin, Plavix, and Lipitor - Nitroglycerin prn HTN, uncontrolled - Will increase Coreg to 25 mg bid and Norvasc to 10 mg qd - C/w Losartan 100 mg po qd, Hydralazine 100 mg PO TID, and Lasix 40 mg po bid HLD - C/w Lipitor BPH - C/w Flomax DVT//GI prophylaxis - Heparin infusion - No indication for GI prophylaxis Discussed with: Patient, daughter Anticipated discharge date: 04/18/[address]: Home A total of 35 minutes was spent on the care of this complex patient more than 50 % of the time was spent in counseling and care coordination..
--- NOTE | 2018-04-17 15:25 | ECHOF ---
Referral Reason:Chest pain, r/o ACS MEASUREMENTS -------- HEIGHT: 182.9 cm WEIGHT: 92.1 kg BP: 168/78 RVIDd: 3.8 cm (< 3.3) IVSd: 1.7 cm (0.6 - 1.1) LVIDd: 5.2 cm (3.9 - 5.3) LVPWd: 1.6 cm (0.6 - 1.1) IVSs: 2.0 cm LVIDs: 4.7 cm LVPWs: 1.6 cm LA Diam: 5.1 cm (2.7 - 3.8) LAESV Index (A-L): 60.08 ml/m Ao Diam: 3.8 cm (2.0 - 3.7) AV Cusp: 2.7 cm (1.5 - 2.6) MV EXCURSION: 16.659 mm (> 18.000) MV EF SLOPE: 35 mm/s (70 - 150) EPSS: 1.7 cm MV E Russell: 1.25 m/s MV DecT: 190 ms MV A Russell: 1.14 m/s MV E/A Ratio: 1.09 AR PHT: 451 ms RAP: 5.00 mmHg RVSP: 37.02 mmHg FINDINGS -------- Paced rhythm. This was a technically good study. The left ventricular size is normal. There is severe concentric left ventricular hypertrophy. Ove rall left ventricular systolic function is moderate-severely impaired with, an EF between 30 - 35 %. Basal inferior LV wall motion is hypokinetic. Mid inferior LV wall motion is hypokinetic. Api kale inferior LV wall motion is hypokinetic. Apical septum LV wall motion is hypokinetic. The right ventricle is mild to moderately enlarged. LA is severely dilated >40 ml/m2 The right atrium is normal in size. Aortic valve is trileaflet and is mildly thickened. There is moderate aortic regurgitation. The mitral valve leaflets are mildly thickened. Mild mitral annular calcification present. Modera te mitral regurgitation is present. Mild tricuspid regurgitation present. There is mild pulmonary hypertension. The right ventricular systolic pressure, as measured by Doppler, is 37.02mmHg. Moderate pulmonic regurgitation. The aortic root is dilated measuring 3.8cm. Normal inferior vena cava with normal inspiratory collapse consistent with estimated right atrial pre ssure of 5 mmHg. There is no pericardial effusion. CONCLUSIONS -------- 1. Paced rhythm. 2. This was a technically good study. 3. The left ventricular size is normal. 4. There is severe concentric left ventricular hypertrophy. 5. Overall left ventricular systolic function is moderate-severely impaired with, an EF between 30 - 35 %. 6. Basal inferior LV wall motion is hypokinetic. 7. Mid inferior LV wall motion is hypokinetic. 8. Apical inferior LV wall motion is hypokinetic. 9. Apical septum LV wall motion is hypokinetic. 10. The right ventricle is mild to moderately enlarged. 11. LA is severely dilated >40 ml/m2 12. The right atrium is normal in size. 13. Aortic valve is trileaflet and is mildly thickened. 14. There is moderate aortic regurgitation. 15. The mitral valve leaflets are mildly thickened. 16. Mild mitral annular calcification present. 17. Moderate mitral regurgitation is present. 18. Mild tricuspid regurgitation present. 19. There is mild pulmonary hypertension. 20. The right ventricular systolic pressure, as measured by Doppler, is 37.02mmHg. 21. Moderate pulmonic regurgitation. 22. The aortic root is dilated measuring 3.8cm. 23. Normal inferior vena cava with normal inspiratory collapse consistent with estimated right atrial pressure of 5 mmHg. 24. There is no pericardial effusion. [employer] K[employer]PER: Stacie Lopez RDCS
--- NOTE | 2018-04-17 15:50 | P.CRDCN ---
<Janneth Santos E - Last Filed: 04/17/18 15:38> History of Present Illness Consult date: 04/17/18 Requesting physician: Emeka Nielson Consult reason: non-Q-wave ID Chief complaint: Chest pain and shortness of breath History of present illness: This is a pleasant 82-year-old gentleman who follows regularly with Dr. Fairchild in the office. He has a known history of coronary artery disease with prior bypass surgery in 1997, AICD placed when he was in [place] in 2011, history also of a ventricular tachycardia ablation according to the patient. History of hypertension, hyperlipidemia. Patient presents to the hospital with symptoms of exertional shortness of breath, according to him over the past one week or so he can only walk a short distance when he becomes very short of breath and develops a discomfort in his chest. He states that once he rests the symptoms seemed to that side and he feels better. Initial EKG on presentation here showed a dual paced rhythm with evidence of ST-T wave changes in the inferior lateral leads. Subsequent EKG performed showed normal sinus rhythm with first-degree AV block and ST-T wave changes noted in the inferior lateral leads. Chest x-ray shows some basilar atelectasis, possible volume overload, pulmonary venous hypertension and interstitial edema. Carotid Doppler study was performed which revealed antegrade flow in the vertebral arteries, images and measurements suggest less than 25% stenosis in both internal carotid arteries. Echocardiogram with Doppler study was performed which revealed an ejection fraction of 30-35% with basal inferior and mid inferior and apical inferior wall motion hypokinesia, apical septal wall motion hypokinesia. Moderate mitral regurgitation, moderate aortic regurgitation, moderate pulmonary regurgitation. Operatory data was reviewed, white blood cell count 5.8, hemoglobin 11.3, platelet count 150. Sodium 128, it was 125 on admission, BUN 14, creatinine 1.0. Magnesium 1.9. Troponins 0.03, 0.05, 0.08. At the time of my examination, patient is free of any shortness of breath or chest pains. Patient was given Lasix in the emergency room and has been diuresing well since his admission here. We'll decrease his aspirin to 81 mg daily, continue amiodarone, Norvasc, Coreg, Plavix , discontinue ibuprofen, continue IV heparin, continue hydralazine, continue losartan. Patient has been advised that he will need to undergo cardiac catheterization for more definitive diagnosis, the risks and benefits were explained to the patient in detail and he is willing to proceed. This will be scheduled tomorrow with Dr. Fairchild. Past Medical History Past Medical History: GERD/Reflux, Hyperlipidemia, Hypertension, Myocardial Infarction (ID) Additional Past Medical History / Comment(s): TRIP CABG IN , DEBIF/PM IN 2011 ; NECK PAIN Last Myocardial Infarction Date:: 06/29/1998 History of Any Multi-Drug Resistant Organisms: None Reported Past Surgical History: Coronary Bypass/CABG, Joint Replacement Additional Past Surgical History / Comment(s): left knee Past Anesthesia/Blood Transfusion Reactions: No Reported Reaction Type of Cardiac Device: Unknown Device Placement Date:: 02/28/2012 Past Psychological History: No Psychological Hx Reported Smoking Status: Former smoker Past Alcohol Use History: None Reported Past Drug Use History: None Reported Medications and Allergies Home Medications Medication Instructions Recorded Confirmed Type Amiodarone [Cordarone] 200 mg PO DAILY 01/27/14 04/16/18 History Potassium Chloride [Klor-Con 10] 10 meq PO BID 01/27/14 04/16/18 History Simvastatin [Zocor] 20 mg PO HS 01/27/14 04/16/18 History ALPRAZolam [Xanax] 0.5 mg PO BID PRN 01/28/17 04/16/18 History amLODIPine [Norvasc] 5 mg PO BID 01/28/17 04/16/18 History Carvedilol [Coreg] 12.5 mg PO BID 04/16/18 04/16/18 History Cholecalciferol [Vitamin D3] 1,000 unit PO DAILY 04/16/18 04/16/18 History Fexofenadine HCl [Laura Allergy] 180 mg PO DAILY PRN 04/16/18 04/16/18 History Flaxseed Oil [Dale-3 Flaxseed Oil] 1,000 mg PO DAILY 04/16/18 04/16/18 History Fluticasone Nasal Mccurtain [Flonase 2 spr EA NOSTRIL DAILY 04/16/18 04/16/18 History Nasal Mccurtain] Fluticasone Nasal Mccurtain [Flonase 2 sprays EA NOSTRIL DAILY 04/16/18 04/16/18 History Nasal Mccurtain] Furosemide [Lasix] 40 mg PO BID 04/16/18 04/16/18 History Ibuprofen/Diphenhydramine HCl 1 cap PO HS PRN 04/16/18 04/16/18 History [Advil Pm Liqui-Gels] L.acidoph,Paracasei, B.lactis 1 cap PO HS 04/16/18 04/16/18 History [Probiotic] Linaclotide [Linzess] 72 mcg PO DAILY 04/16/18 04/16/18 History Losartan Potassium 100 mg PO DAILY 04/16/18 04/16/18 History Mirtazapine [Remeron] 15 mg PO HS 04/16/18 04/16/18 History Multivitamins, Thera [Multivitamin 1 tab PO DAILY 04/16/18 04/16/18 History (formulary)] Nebivolol [Bystolic] 5 mg PO DAILY 04/16/18 04/16/18 History Sertraline [Zoloft] 50 mg PO DAILY 04/16/18 04/16/18 History Simethicone 80 mg PO QID PRN 04/16/18 04/16/18 History Tamsulosin [Flomax] 0.4 mg PO DAILY 04/16/18 04/16/18 History hydrALAZINE HCL [Apresoline] 100 mg PO TID 04/16/18 04/16/18 History Allergies Allergy/AdvReac Type Severity Reaction Status Date / Time Beta-Blockers Allergy Unknown Verified 04/16/18 14:49 (Beta-Adrenergic Bloc NORCO AdvReac ADDICTIVE Uncoded 04/16/18 14:49 Physical Exam Vitals: Vital Signs Temp Pulse Pulse Resp BP BP Pulse Ox 04/17/18 11:02 60 16 04/17/18 11:01 97.1 F L 60 16 158/72 100 04/17/18 08:00 97.1 F L 61 18 170/77 96 04/17/18 04:00 98 F 63 20 168/78 96 04/16/18 23:00 60 16 158/73 98 04/16/18 21:12 97.7 F 60 20 164/79 98 04/16/18 20:37 60 16 152/75 98 04/16/18 19:18 60 18 162/77 95 04/16/18 17:58 60 18 171/80 96 Intake and Output 04/17/18 04/17/1818 06:59 14:59 22:59 Intake Total 849.209 Output Total 19990 Balance -1150.791 -3300 Intake: Intake, IV Titration 249.209 Amount Heparin Sod,Pork in 0.45% 249.209 NaCl 25,000 unit In 0.45 % NaCl 1 500ml.bag @ 10. 35 UNITS/KG/HR 19.99 mls/ hr IV .Q24H [facility] Rx#: [id number] Oral 600 Output: Urine 1999 3299 Other: Voiding Method Urinal Urinal # Voids 3 1 Weight 92.487 kg PHYSICAL EXAMINATION: GENERAL: 82-year-old gentleman in no acute distress at the time of my examination HEENT: Head is atraumatic, normocephalic. Pupils equal, round. Sclera anicteric. Conjunctiva are clear. Mucous membranes of the mouth are moist. Neck is supple. There is no elevated jugular venous pressure.] bruit is heard. HEART EXAMINATION: R S1 and S2 systolic murmur is heard CHEST EXAMINATION:. Mild diminished air entry to the bases ABDOMEN: Soft, nontender. Bowel sounds are heard. No organomegaly noted. EXTREMITIES: 2+ peripheral pulses with trace evidence of peripheral edema and no calf tenderness noted. NEUROLOGIC patient is awake, alert and oriented ?-3. . Results 04/17/18 02:37 04/17/18 02:37 Cardiac Enzymes 04/16/18 04/17/18 04/17/18 Range/Units 21:09 02:37 02:37 AST 25 (17-59) U/L CK-MB (CK-2) 2.2 2.3 (0.0-2.4) ng/mL Troponin I 0.059 H* 0.083 H* (0.000-0.034) ng/mL Coagulation 04/17/18 Range/Units 02:37 APTT 59.3 H (22.0-30.0) sec Lipids 04/17/18 Range/Units 02:37 Triglycerides 91 (<150) mg/dL Cholesterol 89 (<200) mg/dL HDL Cholesterol 41 (40-60) mg/dL CBC 04/17/18 Range/Units 02:37 WBC 5.8 (3.8-10.6) k/uL RBC 3.91 L (4.30-5.90) m/uL Hgb 11.3 L (13.0-17.5) gm/dL Hct 33.8 L (39.0-53.0) % Plt Count 150 (150-450) k/uL Comprehensive Metabolic Panel 04/17/18 Range/Units 02:37 Sodium 128 L (137-145) mmol/L Potassium 3.9 (3.5-5.1) mmol/L Chloride 94 L (98-107) mmol/L Carbon Dioxide 21 L (22-30) mmol/L BUN 14 (9-20) mg/dL Creatinine 1.07 (0.66-1.25) mg/dL Glucose 94 (74-99) mg/dL Calcium 9.1 (8.4-10.2) mg/dL AST 25 (17-59) U/L ALT 49 (21-72) U/L Alkaline Phosphatase 58 (38-126) U/L Total Protein 6.3 (6.3-8.2) g/dL Albumin 3.8 (3.5-5.0) g/dL Current Medications Generic Name Dose Route Start Last Admin Trade Name Freq PRN Reason Stop Dose Admin Alprazolam 0.5 mg 04/16/18 17:23 Xanax PO BID PRN Anxiety Amiodarone HCl 200 mg 04/17/18 09:00 04/17/18 08:44 Cordarone PO 200 mg DAILY [facility] Administration Amlodipine Besylate 10 mg 04/18/18 09:00 Norvasc PO DAILY [facility] Aspirin 325 mg 04/17/18 09:00 04/17/18 08:32 Aspirin PO 325 mg DAILY [facility] Administration Atorvastatin Calcium 10 mg 04/16/18 21:00 04/16/18 22:53 Lipitor PO 10 mg HS [facility] Administration Carvedilol 25 mg 04/17/18 17:30 Coreg PO BID-W/MEALS [facility] Cholecalciferol 1,000 unit 04/17/18 09:00 04/17/18 08:45 Vitamin D3 PO 1,000 unit DAILY [facility] Administration Clopidogrel Bisulfate 75 mg 04/16/18 18:45 04/17/18 08:26 Plavix PO 75 mg DAILY [facility] Administration Diphenhydramine HCl 25 mg 04/16/18 17:56 Benadryl PO HS PRN See comments Fluticasone Propionate 2 spray 04/17/18 09:00 04/17/18 08:27 Flonase Nasal [place]urt[place] EA NOSTRIL Not Given DAILY [facility] Furosemide 40 mg 04/16/18 21:00 04/17/18 08:26 Lasix PO 40 mg BID@0900,1600 [facility] Administration Hydralazine HCl 100 mg 04/16/18 22:00 04/17/18 08:26 Apresoline PO 100 mg TID [facility] Administration Heparin Sodium/Sodium Chloride 500 mls @ 19.99 mls/hr 04/16/18 17:30 06:37 25,000 unit/ Sodium Chloride IV 10.29 units/kg/hr .Q24H [facility] 19.9 mls/hr Titration Protocol 10.35 UNITS/KG/HR Sodium Chloride 1,000 mls @ 20 mls/hr 04/16/18 17:30 04/16/18 18:14 Saline 0.9% IV 20 mls/hr .Q24H [facility] Administration Ibuprofen 200 mg 04/16/18 17:23 04/17/18 08:44 Advil PO 200 mg HS PRN Administration See comments Lactobacillus Acidoph/Bulgaricus 1 each 04/16/18 21:00 04/16/18 22:53 Lactinex PO 1 each HS [facility] Administration Loratadine 10 mg 04/16/18 17:23 Claritin PO DAILY PRN Allergy Symptoms Losartan Potassium 100 mg 04/17/18 09:00 04/17/18 08:43 Cozaar PO 100 mg DAILY [facility] Administration Mirtazapine 15 mg 04/16/18 21:00 04/16/18 22:54 Remeron PO 15 mg HS [facility] Administration Multivitamins 1 each 04/17/18 09:00 04/17/18 08:44 Theragran PO 1 each DAILY [facility] Administration Nebivolol 5 mg 04/17/18 09:00 04/17/18 08:45 Bystolic PO 5 mg DAILY [facility] Administration Nitroglycerin 1 inch 04/16/18 18:00 04/17/18 11:49 Nitro-Bid Oint TOPICAL 1 inch Q6HR [facility] Administration Nitroglycerin 0.4 mg 04/16/18 17:20 Nitrostat SUBLINGUAL Q5M PRN Chest Pain Linzess 72 Mcg 72 mcg 04/17/18 09:00 04/17/18 08:29 PO Not Given DAILY [facility] Potassium Chloride 10 meq 04/16/18 21:00 04/17/18 08:25 K-Dur 10 PO 10 meq BID [facility] Administration Sertraline HCl 50 mg 04/17/18 09:00 04/17/18 08:44 Zoloft PO 50 mg DAILY [facility] Administration Simethicone 80 mg 04/16/18 17:23 Mylicon Chew PO QID PRN Indigestion Tamsulosin HCl 0.4 mg 04/17/18 09:00 04/17/18 08:44 Flomax PO 0.4 mg DAILY [facility] Administration Intake and Output 04/17/18 04/17/18 04/17/18 06:59 14:59 22:59 Intake Total 849.209 Output Total 1999 3300 Balance -1150.791 -3300 Intake: Intake, IV Titration 249.209 Amount Heparin Sod,Pork in 0.45% 249.209 NaCl 25,000 unit In 0.45 % NaCl 1 500ml.bag @ 10. 35 UNITS/KG/HR 19.99 mls/ hr IV .Q24H [facility] Rx#: [id number] Oral 600 Output: Urine 1999 3300 Other: Voiding Method Urinal Urinal # Voids 3 1 Weight 92.487 kg 04/17/18 02:37 04/17/18 02:37 EKG Interpretations (text) EKG shows a normal sinus rhythm with first-degree AV block and ST-T wave changes noted in the inferior lateral leads. Assessment and Plan Plan: Assessment and plan #1 non-ST elevation myocardial infarction #2 history of coronary artery disease with prior bypass surgery in 1997 #3 ischemic cardiomyopathy with prior AICD implantation #4 history of ventricular tachycardia ablation #5 hypertension #6 hyperlipidemia Plan We will continue the patient on his current medications, decrease aspirin 81 mg daily and discontinue ibuprofen. Continue IV heparin. Patient has been advised to undergo cardiac catheterization, the risks and benefits were splayed to the patient in detail and he is willing to proceed. Be performed tomorrow by Dr. Fairchild. Further recommendations to follow. DNP note has been reviewed, I agree with a documented findings and plan of care. Patient was seen and examined. <Abiel Suarez - Last Filed: 04/18/18 10:08> History of Present Illness History of present illness: Patient interviewed and examined. Experiencing shortness of breath and chest discomfort for the last several days. Abnormal cardiac enzymes. Known cardiac myopathy dual-chamber ICD implanted when he is back follows with Dr. Fairchild likely non-Q-wave myocardial infarction with underlying CAD plan is to proceed with coronary angiography today with Dr. Fairchild. Maximize medical treatment Physical Exam Vitals: Vital Signs Temp Pulse Resp BP Pulse Ox 04/18/18 08:00 98.1 F 60 18 162/70 96 04/18/18 04:00 59 L 18 04/18/18 00:00 97.6 F 60 18 148/73 94 L 04/17/18 20:00 60 18 04/17/18 19:48 97.5 F L 60 18 146/67 04/17/18 16:49 60 18 04/17/18 16:00 97.0 F L 60 18 142/77 96 04/17/18 15:51 97.4 F L 60 20 162/70 95 04/17/18 15:26 97.2 F L 61 17 151/73 97 04/17/18 11:02 60 16 04/17/18 11:01 97.1 F L 60 16 158/72 100 Intake and Output 04/17/18 04/18/18 04/18/18 22:59 06:59 14:59 Intake Total 960 490.791 Balance 960 490.791 Intake: Intake, IV Titration 250.791 Amount Heparin Sod,Pork in 0.45% 250.791 NaCl 25,000 unit In 0.45 % NaCl 1 500ml.bag @ 10. 35 UNITS/KG/HR 19.99 mls/ hr IV .Q24H [facility] Rx#: [id number] Oral 960 240 Other: Voiding Method Urinal Urinal # Voids 2 1 # Bowel Movements 0 Weight 88.9 kg Results 04/18/18 05:50 04/18/18 05:50 Cardiac Enzymes 04/18/18 Range/Units 05:50 AST 22 (17-59) U/L Coagulation 04/18/18 Range/Units 05:50 APTT 62.3 H (22.0-30.0) sec CBC 04/18/18 Range/Units 05:50 WBC 7.3 (3.8-10.6) k/uL RBC 4.38 (4.30-5.90) m/uL Hgb 12.7 L (13.0-17.5) gm/dL Hct 38.1 L (39.0-53.0) % Plt Count 207 (150-450) k/uL Comprehensive Metabolic Panel 04/18/18 Range/Units 05:50 Sodium 134 L (137-145) mmol/L Potassium 3.5 (3.5-5.1) mmol/L Chloride 95 L (98-107) mmol/L Carbon Dioxide 27 (22-30) mmol/L BUN 13 (9-20) mg/dL Creatinine 1.13 (0.66-1.25) mg/dL Glucose 101 H (74-99) mg/dL Calcium 9.1 (8.4-10.2) mg/dL AST 22 (17-59) U/L ALT 42 (21-72) U/L Alkaline Phosphatase 66 (38-126) U/L Total Protein 6.9 (6.3-8.2) g/dL Albumin 4.3 (3.5-5.0) g/dL Current Medications Generic Name Dose Route Start Last Admin Trade Name Freq PRN Reason Stop Dose Admin Alprazolam 0.25 mg 04/17/18 15:51 Xanax PO Q6HR PRN Mild Anxiety Alprazolam 0.5 mg 04/17/18 15:51 Xanax PO Q6HR PRN Moderate Anxiety Amiodarone HCl 200 mg 04/17/18 09:00 04/18/18 06:44 Cordarone PO 200 mg DAILY [facility]LEEN Administration Amlodipine Besylate 10 mg 04/18/18 09:00 04/18/18 06:45 Norvasc PO 10 mg DAILY [facility] Administration Aspirin 325 mg 04/17/18 09:00 04/18/18 07:01 Aspirin PO Not Given DAILY [facility] Atorvastatin Calcium 10 mg 04/16/18 21:00 04/17/18 20:22 Lipitor PO 10 mg HS [facility] Administration Carvedilol 25 mg 04/18/18 17:30 Coreg PO BID-W/MEALS [facility] Cholecalciferol 1,000 unit 04/17/18 09:00 04/18/18 06:44 Vitamin D3 PO 1,000 unit DAILY [facility] Administration Clopidogrel Bisulfate 75 mg 04/16/18 18:45 04/18/18 06:43 Plavix PO 75 mg DAILY [facility] Administration Diphenhydramine HCl 25 mg 04/16/18 17:56 Benadryl PO HS PRN See comments Fluticasone Propionate 2 spray 04/17/18 09:00 04/17/18 21:12 Flonase Nasal [place]urt[place] EA NOSTRIL 2 spray DAILY [facility] Administration Furosemide 40 mg 04/16/18 21:00 04/17/18 16:23 Lasix PO 40 mg BID@0900,1600 [facility] Administration Hydralazine HCl 100 mg 04/16/18 22:00 04/18/18 06:46 Apresoline PO 100 mg TID [facility] Administration Heparin Sodium/Sodium Chloride 500 mls @ 19.99 mls/hr 04/16/18 17:30 06:38 25,000 unit/ Sodium Chloride IV Infused .Q24H [facility] Titration Protocol 10.35 UNITS/KG/HR Sodium Chloride 1,000 mls @ 20 mls/hr 04/16/18 17:30 04/18/18 01:56 Saline 0.9% IV Not Given .Q24H [facility] Ibuprofen 200 mg 04/16/18 17:23 04/17/18 08:44 Advil PO 200 mg HS PRN Administration See comments Lactobacillus Acidoph/Bulgaricus 1 each 04/16/18 21:00 04/17/18 20:22 Lactinex PO 1 each HS [facility] Administration Loratadine 10 mg 04/16/18 17:23 Claritin PO DAILY PRN Allergy Symptoms Losartan Potassium 100 mg 04/17/18 09:00 04/18/18 06:46 Cozaar PO 100 mg DAILY [facility] Administration Mirtazapine 15 mg 04/16/18 21:00 04/17/18 20:22 Remeron PO 15 mg HS [facility] Administration Multivitamins 1 each 04/17/18 09:00 04/18/18 06:44 Theragran PO 1 each DAILY [facility] Administration Nitroglycerin 1 inch 04/16/18 18:00 04/18/18 06:53 Nitro-Bid Oint TOPICAL Not Given Q6HR [facility] Nitroglycerin 0.4 mg 04/17/18 15:51 Nitrostat SUBLINGUAL Q5M PRN Chest Pain Linzess 72 Mcg 72 mcg 04/17/18 09:00 04/17/18 08:29 PO Not Given DAILY [facility] Potassium Chloride 10 meq 04/16/18 21:00 04/18/18 06:47 K-Dur 10 PO 10 meq BID [facility] Administration Sertraline HCl 50 mg 04/17/18 09:00 04/18/18 06:45 Zoloft PO 50 mg DAILY [facility] Administration Simethicone 80 mg 04/16/18 17:23 Mylicon Chew PO QID PRN Indigestion Tamsulosin HCl 0.4 mg 04/17/18 09:00 04/18/18 06:44 Flomax PO 0.4 mg DAILY [facility] Administration Intake and Output 04/17/18 04/18/18 04/18/18 22:59 06:59 14:59 Intake Total 960 490.791 Balance 960 490.791 Intake: Intake, IV Titration 250.791 Amount Heparin Sod,Pork in 0.45% 250.791 NaCl 25,000 unit In 0.45 % NaCl 1 500ml.bag @ 10. 35 UNITS/KG/HR 19.99 mls/ hr IV .Q24H [facility] Rx#: [id number] Oral 960 240 Other: Voiding Method Urinal Urinal # Voids 2 1 # Bowel Movements 0 Weight 88.9 kg 04/18/18 05:50 04/18/18 05:50
[2018-04-17] MEDS ORDERED: NITROGLYCERIN SL TABS 0.4 MG TAB SUBLINGUAL PRN (15:51)
[2018-04-17] MEDS ORDERED: SODIUM CHLORIDE 0.9% 1,000 ML in EMPTY BAG 1 BAG IV ONE (15:51)
[2018-04-17] MEDS ORDERED: ALPRAZolam 0.5 MG TAB PO PRN (15:51)
[2018-04-17 16:49] LABS: Glucose,Whole Blood 128 mg/dL (75-99)
[2018-04-17] MEDS: MIRTAZAPINE 15 MG TAB PO SCH (20:22)
[2018-04-17] MEDS: LACTOBACILLUS ACIDOPH & BULGAR 1 EACH PACKET PO SCH (20:22)
[2018-04-17] MEDS: ATORVASTATIN 10 MG TAB PO SCH (20:22)
[2018-04-17] MEDS: HEPARIN SOD,PORK IN 0.45% NACL 25,000 UNIT in 0.45% NACL 1 500ML.BAG IV SCH (21:13)
[2018-04-18] MEDS: NITROGLYCERIN OINT 1 INCH/GM PACKET TOPICAL SCH ×4 (01:55→18:51)
[2018-04-18] MEDS: SODIUM CHLORIDE 0.9% 1,000 ML IV SCH ×2 (01:56→18:54)
[2018-04-18] MEDS ORDERED: ASPIRIN 325 MG TAB PO ONE (06:00)
[2018-04-18] MEDS ORDERED: ATORVASTATIN 80 MG TAB PO ONE (06:00)
[2018-04-18 06:15] LABS: HCT 38.1 % (39.0-53.0); HGB 12.7 gm/dL (13.0-17.5); MCH 29.1 pg (25.0-35.0); MCHC 33.5 g/dL (31.0-37.0); MCV 86.9 fL (80.0-100.0); Mean Platelet Volume 6.6; Platelet Count 207 k/uL (150-450); RBC 4.38 m/uL (4.30-5.90); RDW 15.7 % (11.5-15.5); WBC 7.3 k/uL (3.8-10.6)
[2018-04-18 06:39] LABS: Albumin 4.3 g/dL (3.5-5.0); Calcium 9.1 mg/dL (8.4-10.2); Potassium 3.5 mmol/L (3.5-5.1); Total Protein 6.9 g/dL (6.3-8.2)
[2018-04-18] MEDS: CLOPIDOGREL 75 MG TAB PO SCH (06:43)
[2018-04-18] MEDS: MULTIVITAMINS, THERA 1 EACH TAB PO SCH (06:44)
[2018-04-18] MEDS: AMIODARONE 200 MG TAB PO SCH (06:44)
[2018-04-18] MEDS: CHOLECALCIFEROL 1,000 UNIT TAB PO SCH (06:44)
[2018-04-18] MEDS: TAMSULOSIN 0.4 MG CAP.ER.24H PO SCH (06:44)
[2018-04-18] MEDS: SERTRALINE 50 MG TAB PO SCH (06:45)
[2018-04-18] MEDS: NEBIVOLOL 5 MG TAB PO SCH (06:45)
[2018-04-18] MEDS: amLODIPine 10 MG TAB PO SCH (06:45)
[2018-04-18] MEDS: hydrALAZINE HCL 50 MG TAB PO SCH ×3 (06:46→20:29)
[2018-04-18] MEDS: LOSARTAN 50 MG TAB PO SCH (06:46)
[2018-04-18] MEDS: POTASSIUM CHLORIDE ER 10 MEQ TAB.ER.PRT PO SCH ×2 (06:47→20:29)
[2018-04-18] MEDS: ASPIRIN 325 MG TAB PO SCH (07:01)
[2018-04-18] MEDS: POTASSIUM CHLORIDE ER 20 MEQ TAB.ER PO SCH ×2 (08:39→12:49)
[2018-04-18] MEDS ORDERED: IV FLUID CONTINUATION 600 ML IV ONE (10:18)
[2018-04-18] MEDS ORDERED: MIDAZOLAM 2 MG/2 ML VIAL IVP ONE (10:18)
[2018-04-18] MEDS ORDERED: fentaNYL (PF) 50 MCG/ML 2 ML AMP IV ONE (10:18)
[2018-04-18] MEDS ORDERED: LIDOCAINE 1% INJ 10MG/ML (20 ML MDV) SQ ONE (10:23)
[2018-04-18] MEDS ORDERED: IOPAMIDOL-370 125ML BTL INJ ONE (10:57)
[2018-04-18] MEDS: LINZESS 72 MCG PO SCH (12:38)
[2018-04-18] MEDS: FUROSEMIDE 40 MG TAB PO SCH ×2 (14:34→14:53)
[2018-04-18] MEDS: ALPRAZolam 0.25 MG TAB PO PRN (15:20)
[2018-04-18] MEDS: HYDROcodone/APAP 5-325MG 1 EACH TAB PO PRN ×2 (16:42→22:29)
[2018-04-18] MEDS: CARVEDILOL 12.5 MG TAB PO SCH (16:46)
[2018-04-18] MEDS ORDERED: SODIUM CHLORIDE 0.65% NASAL SPRAY 44 ML BTL NASAL PRN (19:48)
--- NOTE | 2018-04-18 20:08 | P.PN ---
Subjective Progress Note Date: 04/18/18 Patient was seen and examined at the bedside. The patient was in good spirits and notes that he is doing well after the procedure. He denied any further chest pain, shortness of breath, or palpitations. Objective - Vital Signs Vital signs: Vital Signs Temp 98.0 F 04/18/18 19:37 Pulse 94 04/18/18 19:37 Resp 18 04/18/18 19:37 BP 127/58 04/18/18 19:37 Pulse Ox 94 L 04/18/18 19:37 Intake & Output 04/18/18 04/18/18 04/19/18 06:59 18:59 06:59 Intake Total 1330.791 936 Output Total 980 Balance 1330.791 -44 Weight 88.9 kg Intake: IV 100 Intake, IV Titration 250.791 Amount Heparin Sod,Pork in 0.45% 250.791 NaCl 25,000 unit In 0.45 % NaCl 1 500ml.bag @ 10. 35 UNITS/KG/HR 19.99 mls/ hr IV .Q24H [facility] Rx#: [id number] Oral 1080 836 Output: Urine 980 Other: Voiding Method Urinal Urinal # Voids 1 1 - Exam General: Non-toxic, in no acute distress HEENT: NC/AT, anicteric sclerae, moist conjunctiva, no lid-lag, PERRLA, oropharynx clear, no erythema, exudates Cardiovascular: S1/S2 wnl, no murmurs, rubs, or gallops Lungs: Clear to auscultation, normal respiratory effort, no accessory muscle use Abdominal: Soft, nontender, non-distended, no guarding, rebound, or rigidity, normoactive bowel sounds Skin: Warm, dry Extremities: No lower extremity edema bilaterally Psychiatric: Alert and oriented to person, place and time, appropriate affect, Intact judgment Neuro: CN II-XII grossly intact, no focal motor deficits - Labs CBC & Chem 7: 04/18/18 05:50 04/18/18 15:46 Labs: Abnormal Lab Results - Last 24 Hours (Table) 04/18/18 04/18/18 04/18/18 Range/Units 05:50 05:50 05:50 Hgb 12.7 L (13.0-17.5) gm/dL Hct 38.1 L (39.0-53.0) % RDW 15.7 H (11.5-15.5) % APTT 62.3 H (22.0-30.0) sec Sodium 134 L (137-145) mmol/L Chloride 95 L (98-107) mmol/L Glucose 101 H (74-99) mg/dL Assessment and Plan Plan: NSTEMI - S/p Cardiac catheterization, pending report - Care as per Cardiology HTN, Controlled -Continue with Norvasc 10 mg, Coreg 25 mg, hydralazine 100 mg 3 times a day, and losartan 100 mg, HLD - C/w Lipitor BPH - C/w Flomax DVT//GI prophylaxis - Heparin infusion - No indication for GI prophylaxis Discussed with: Patient Anticipated discharge date: 04/20/[address]: Home A total of 35 minutes was spent on the care of this complex patient more than 50 % of the time was spent in counseling and care coordination..
[2018-04-18] MEDS: MIRTAZAPINE 15 MG TAB PO SCH (20:29)
[2018-04-18] MEDS: ATORVASTATIN 10 MG TAB PO SCH (20:29)
[2018-04-18] MEDS: LACTOBACILLUS ACIDOPH & BULGAR 1 EACH PACKET PO SCH (20:30)
[2018-04-18] MEDS: HEPARIN SOD,PORK IN 0.45% NACL 25,000 UNIT in 0.45% NACL 1 500ML.BAG IV SCH ×2 (20:47)
[2018-04-19] MEDS: NITROGLYCERIN OINT 1 INCH/GM PACKET TOPICAL SCH ×3 (00:23→12:00)
[2018-04-19] MEDS: CARVEDILOL 12.5 MG TAB PO SCH (06:27)
[2018-04-19] MEDS: FLUTICASONE 50MCG/SPRAY NASAL 16GM EA NOSTRIL SCH (09:39)
[2018-04-19] MEDS: ASPIRIN 325 MG TAB PO SCH (09:40)
[2018-04-19] MEDS: hydrALAZINE HCL 50 MG TAB PO SCH ×2 (09:40→15:11)
[2018-04-19] MEDS: FUROSEMIDE 40 MG TAB PO SCH ×2 (09:40→15:11)
[2018-04-19] MEDS: POTASSIUM CHLORIDE ER 10 MEQ TAB.ER.PRT PO SCH (09:41)
[2018-04-19] MEDS: CHOLECALCIFEROL 1,000 UNIT TAB PO SCH (09:42)
[2018-04-19] MEDS: TAMSULOSIN 0.4 MG CAP.ER.24H PO SCH (09:42)
[2018-04-19] MEDS: CLOPIDOGREL 75 MG TAB PO SCH (09:42)
[2018-04-19] MEDS: MULTIVITAMINS, THERA 1 EACH TAB PO SCH (09:42)
[2018-04-19] MEDS: AMIODARONE 200 MG TAB PO SCH (09:42)
[2018-04-19] MEDS: LOSARTAN 50 MG TAB PO SCH (09:43)
[2018-04-19] MEDS: LINZESS 72 MCG PO SCH (09:44)
[2018-04-19] MEDS: SERTRALINE 50 MG TAB PO SCH (09:44)
[2018-04-19] MEDS: amLODIPine 10 MG TAB PO SCH (09:44)
[2018-04-19] MEDS ORDERED: BISACODYL 10 MG SUPP RECTAL STA (09:54)
[2018-04-19] MEDS ORDERED: BISACODYL 5 MG TABLET.DR PO STA (09:55)
[2018-04-19 10:48] VITALS: RESP 18
[2018-04-19] MEDS: ALPRAZolam 0.25 MG TAB PO PRN (12:00)
[2018-04-19 14:13] VITALS: BP 128/61; PULSE 88; TEMP 98.2
--- NOTE | 2018-04-19 14:44 | P.PN ---
Subjective Progress Note Date: 04/19/18 This is a pleasant 82-year-old gentleman who follows regularly with Dr. Fairchild in the office. He has a known history of CAD with prior bypass surgery 1997, history of ventricular tachycardia status post ablation according to the patient, prior AICD placement in [facility] in 2011, hypertension, hyperlipidemia. Presented to the hospital with symptoms of exertional shortness of breath. Initial EKG on admission showed dual paced rhythm with evidence of ST-T wave abnormalities in the inferior lateral leads. Chest x-ray showed some basilar atelectasis, possible volume overload, pulmonary venous hypertension and interstitial edema. Patient's troponins were found to be 0.03 , 0.05 and 0.08. Patient underwent cardiac catheterization by Dr. Fairchild yesterday was found to have a lesion in the SVG to the OM. He's been recommended to undergo FFR with possible stenting which he will be scheduled for at a later date. He is currently on amlodipine 10 mg by mouth daily, amiodarone 200 mg by mouth daily, aspirin, carvedilol 25 mg by mouth twice a day , Plavix 75 mg by mouth daily, Lasix 40 mg by mouth twice a day, Cozaar 100 mg by mouth daily. Upon examination, patient is resting comfortably in bed. He denies complaints of shortness of breath or chest discomfort. Objective - Vital Signs Vital signs: Vital Signs Temp 98.2 F 04/19/18 12:00 Pulse 88 04/19/18 12:00 Resp 18 04/19/18 12:00 BP 128/61 04/19/18 12:00 Pulse Ox 94 L 04/19/18 12:00 Intake & Output 04/18/18 04/19/18 04/19/18 18:59 06:59 18:59 Intake Total 936 260 450 Output Total 980 300 Balance -44 -40 450 Weight 94 kg Intake: IV 100 Oral 836 260 450 Output: Urine 980 300 Other: Voiding Method Urinal Urinal # Voids 1 1 1 - Exam PHYSICAL EXAMINATION: HEENT: [Head is atraumatic, normocephalic. Pupils equal, round. Neck is supple. There is no elevated jugular venous pressure.] HEART EXAMINATION: [Heart sounds regular, S1 and S2 with a systolic murmur.] CHEST EXAMINATION:[ Lungs mildly diminished bilateral bases. No chest wall tenderness is noted on palpation or with deep breathing.] ABDOMEN: [ Soft, nontender. Bowel sounds are heard. No organomegaly noted]. EXTREMITIES:[ 2+ peripheral pulses with no evidence of peripheral edema and no calf tenderness noted. Right femoral puncture site soft without ecchymosis or hematoma]. NEUROLOGIC [patient is awake, alert and oriented x3.] . - Labs CBC & Chem 7: 04/18/18 05:50 04/18/18 15:46 Labs: Abnormal Lab Results - Last 24 Hours (Table) 04/19/18 Range/Units 06:13 APTT 49.4 H (22.0-30.0) sec Assessment and Plan Assessment: #1 non-ST elevation myocardial infarction #2 lesion and the SVG to OM in about 60% range will require FFR and possible stent placement #3 ischemic myopathy with prior AICD implantation #4 history of V. tach ablation #5 hypertension #6 hyperlipidemia Plan: From cardiology's perspective, we will continue aspirin 81 mg daily as well as Plavix 75 mg by mouth daily. Continue all other medications. The patient will be scheduled as an outpatient with Dr. Jeffries for an FFR and possible stent placement. Our office will call him Sunday with this date and time. [employer] note has been reviewed, I agree with a documented findings and plan of care. Patient was seen and examined.
[2018-04-19] MEDS: HYDROcodone/APAP 5-325MG 1 EACH TAB PO PRN (15:10)
--- NOTE | 2018-04-19 15:53 | P.DS ---
Providers Date of admission: 04/17/18 16:03 Expected date of discharge: 04/19/18 Attending physician: Emeka Nielson MD Consults: 04/16/18 17:20 Consult Physician Urgent Consulting Provider: Dae Givens Consult Reason/Comments: Chest pain Do you want consulting provider notified?: Yes Primary care physician: [facility] Course: The patient is an 82-year-old male with a past history of hypertension, hyperlipidemia, CAD status post CABG in 1997 and subsequent biventricular pacemaker in 2011 who presented to the ED with complaints of gradually worsening shortness of breath and chest pain for 1 week duration. The patient' s troponin levels increased from 0.0332 to 0.059 to 0.083. The patient was admitted with impression of an NSTEMI. Cardiology was consulted and recommended a cardiac catheterization. Echocardiogram revealed an LVEF between 30 and 35% with severe LVH. The patient underwent cardiac catheterization and was found to have a lesion in the SVG to the OM. He was recommended to undergo FFR with possible stenting, which the patient refused. Upon discussion with cardiology, the patient will be scheduled for the FFR at a later date. Physical Examination General: Awake, alert, in no acute distress HEENT: NC/AT, anicteric sclerae, moist conjunctiva, no lid-lag, PERRLA, oropharynx clear, no erythema, exudates Cardiovascular: S1/S2 wnl, no murmurs, rubs, or gallops Lungs: Clear to auscultation, normal respiratory effort, no accessory muscle use Abdominal: Soft, nontender, non-distended, no guarding, rebound, or rigidity, normoactive bowel sounds Skin: Warm, dry Extremities: No edema or contractures Psychiatric: Alert and oriented to person, place and time, appropriate affect, Intact judgment Neuro: CN II-XI grossly intact, sensation to light touch grossly present throughout, no focal sensory deficits Discharge diagnosis: NSTEMI, lesion in the SVG to OM, 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 Pertinent Studies: Echocardiogram: LVEF between 30-35%, severe LVH Cardiac catheterization: Lesion in the SVG to the OM Patient Condition at Discharge: Stable Plan - Discharge Summary Discharge Rx Participant: No New Discharge Prescriptions: New Aspirin 81 mg PO DAILY #30 chew Clopidogrel [Plavix] 75 mg PO DAILY #30 tab Continue Simvastatin [Zocor] 20 mg PO HS Potassium Chloride [Klor-Con 10] 10 meq PO BID Amiodarone [Cordarone] 200 mg PO DAILY ALPRAZolam [Xanax] 0.5 mg PO BID PRN PRN Reason: Anxiety amLODIPine [Norvasc] 5 mg PO BID Tamsulosin [Flomax] 0.4 mg PO DAILY Sertraline [Zoloft] 50 mg PO DAILY Nebivolol [Bystolic] 5 mg PO DAILY L.acidoph,Paracasei, B.lactis [Probiotic] 1 cap PO HS Cholecalciferol [Vitamin D3] 1,000 unit PO DAILY Multivitamins, Thera [Multivitamin (formulary)] 1 tab PO DAILY Losartan Potassium 100 mg PO DAILY Linaclotide [Linzess] 72 mcg PO DAILY hydrALAZINE HCL [Apresoline] 100 mg PO TID Simethicone 80 mg PO QID PRN PRN Reason: Indigestion Furosemide [Lasix] 40 mg PO BID Fluticasone Nasal [place] [Flonase Nasal [place]] 2 sprays EA NOSTRIL DAILY Carvedilol [Coreg] 12.5 mg PO BID Ibuprofen/Diphenhydramine HCl [Advil Pm Liqui-Gels] 1 cap PO HS PRN PRN Reason: Insomnia Fexofenadine HCl [Laura Allergy] 180 mg PO DAILY PRN PRN Reason: Allergy Symptoms Flaxseed Oil [Temple-3 Flaxseed Oil] 1,000 mg PO DAILY Mirtazapine [Remeron] 15 mg PO HS Fluticasone Nasal [place] [Flonase Nasal [place]] 2 spr EA NOSTRIL DAILY Discharge Medication List Amiodarone [Cordarone] 200 mg PO DAILY 01/27/14 [History] Potassium Chloride [Klor-Con 10] 10 meq PO BID 01/27/14 [History] Simvastatin [Zocor] 20 mg PO HS 01/27/14 [History] ALPRAZolam [Xanax] 0.5 mg PO BID PRN 01/28/17 [History] amLODIPine [Norvasc] 5 mg PO BID 01/28/17 [History] Carvedilol [Coreg] 12.5 mg PO BID 04/16/18 [History] Cholecalciferol [Vitamin D3] 1,000 unit PO DAILY 04/16/18 [History] Fexofenadine HCl [Laura Allergy] 180 mg PO DAILY PRN 04/16/18 [History] Flaxseed Oil [Temple-3 Flaxseed Oil] 1,000 mg PO DAILY 04/16/18 [History] Fluticasone Nasal [place] [Flonase Nasal [place]] 2 spr EA NOSTRIL DAILY 04/16/18 [ History] Fluticasone Nasal [place] [Flonase Nasal [place]] 2 sprays EA NOSTRIL DAILY [History] Furosemide [Lasix] 40 mg PO BID 04/16/18 [History] Ibuprofen/Diphenhydramine HCl [Advil Pm Liqui-Gels] 1 cap PO HS PRN 04/16/18 [ History] L.acidoph,Paracasei, B.lactis [Probiotic] 1 cap PO HS 04/16/18 [History] Linaclotide [Linzess] 72 mcg PO DAILY 04/16/18 [History] Losartan Potassium 100 mg PO DAILY 04/16/18 [History] Mirtazapine [Remeron] 15 mg PO HS 04/16/18 [History] Multivitamins, Thera [Multivitamin (formulary)] 1 tab PO DAILY 04/16/18 [History ] Nebivolol [Bystolic] 5 mg PO DAILY 04/16/18 [History] Sertraline [Zoloft] 50 mg PO DAILY 04/16/18 [History] Simethicone 80 mg PO QID PRN 04/16/18 [History] Tamsulosin [Flomax] 0.4 mg PO DAILY 04/16/18 [History] hydrALAZINE HCL [Apresoline] 100 mg PO TID 04/16/18 [History] Aspirin 81 mg PO DAILY #30 chew 04/19/18 [Rx] Clopidogrel [Plavix] 75 mg PO DAILY #30 tab 04/19/18 [Rx] Follow up Appointment(s)/Referral(s): Gunner Peña MD [Primary Care Provider] - 1-2 days Genaro Fairchild MD [STAFF PHYSICIAN] - 1-2 Days Discharge Disposition: HOME SELF-CARE
[2018-04-20] MEDS ORDERED: ASPIRIN 81 MG PO SCH (09:00)
--- NOTE | 2018-05-07 12:21 | P.CARDCATH ---
Date of Procedure: 04/18/18 Preoperative Diagnosis: Non-STEMI Postoperative Diagnosis: The same Procedure(s) Performed: Left heart catheterization with selective coronary arteriography and selective injection of the CASE and 2 vein grafts without left ventriculography Description of Procedure: HISTORY: This is a 82-year-old gentleman with history of ischemic heart disease and cardiomyopathy status post bypass surgery, was admitted to the hospital with increasing exertional shortness of breath and chest tightness. His cardiac enzyme studies showed borderline elevation of the troponins suggestive of non-ST M I. Patient is advised to have cardiac catheterization for definitive diagnosis CONSENT:I have discussed the risks, benefits and alternative therapies for the above-mentioned procedure and for both sedation/analgesia as well as necessary blood product administration, if indicated, as they pertain to this patient. The patient has indicated understanding and acceptance of the risks and procedures discussed. [] PROCEDURE: Patient was brought to the lab in a fasting state. Patient was given some IV sedation. The right groin is infiltrated with lidocaine and right femoral artery was entered using Seldinger technique. A 6-Tanzanian catheter was left in place and selective coronary arteriography was performed. Patient tolerated the procedure well. Femoral angiogram was performed and patient was sent to selective care unit waiting to be evaluated by Dr. Jeffries for possible stent placement of the graft to the circumflex. No immediate complications were noted and patient was transferred to selective care in a stable condition with the sheath in femoral artery. Conscious Sedation: Versed 0.5 mg Fentanyl 25 g Duration 35 minutes HEMODYNAMICS:. The aortic pressure is about 130/70. End-diastolic pressure was not pressure SELECTIVE CORONARY ARTERIOGRAPHY: LEFT MAIN: Could not be selectively studied and presumed to be totally occluded THE LEFT ANTERIOR DESCENDING CORONARY ARTERY: Totally occluded, not selectively studied THE LEFT CIRCUMFLEX AND IS CORONARY ARTERY: Totally occluded, not selectively studied THE RIGHT CORONARY ARTERY: Totally occluded proximally. THE VEIN GRAFT TO THE RIGHT CORONARY ARTERY: This is a good caliber vessel with a mild ectatic changes without any significant focal lesion. The proximal and distal anastomosis appeared to be patent. THE CASE GRAFT TO THE LAD: This is patent throat its length and also acute distress anastomosis. His tortuous in its course. The LAD beyond the anastomosis is a moderate in caliber and appears to be free of any occlusive disease. The vein graft to the CIRCUMFLEX: This is a good caliber vessel with a stenosis involving the ostium and proximal portion. There is an acute bend proximally. There appears to be about 70% stenosis involving the proximal portion the ostium. The distal anastomosis patent. The vessel beyond the anastomosis appeared to be free of occlusive disease. LEFT VENTRICULOGRAPHY: Performed FINAL IMPRESSION: There appears to be significant bradycardia lesion involving the proximal portion of the graft to the circumflex. The vein graft to the RCA and CASE graft to the LAD are patent. All squaxin vessels are closed PLAN: Maxillary medical therapy. Evaluation by Dr. Jeffries for possible stent placement of the vein graft to circumflex PROGNOSIS: Guarded
== END 2018-04-19 17:30 | disposition home or self-care (01) | DRG 281 ==
LOC: EC 14:15 → 6SEL 17:20 → OBSVTOIN 04-17 16:03
PROVIDERS: ADMIT Family Medicine; ATTEND Family Medicine
PROC: 4A023N7 Measurement of Cardiac Sampling and Pressure, Left Heart, Percutaneous Approach (ICD-10-PCS; principal; 2018-04-18 09:52)
PROC: B2111ZZ Fluoroscopy of Multiple Coronary Arteries using Low Osmolar Contrast (ICD-10-PCS; principal; 2018-04-18 09:52)
DX: I21.4 Non-ST elevation (NSTEMI) myocardial infarction (principal); I50.22 Chronic systolic (congestive) heart failure; I25.710 Atherosclerosis of autologous vein coronary artery bypass graft(s) with unstable angina pectoris; I11.0 Hypertensive heart disease with heart failure; I25.5 Ischemic cardiomyopathy; N40.0 Benign prostatic hyperplasia without lower urinary tract symptoms; K21.9 Gastro-esophageal reflux disease without esophagitis; E78.5 Hyperlipidemia, unspecified; I25.110 Atherosclerotic heart disease of native coronary artery with unstable angina pectoris; M47.9 Spondylosis, unspecified; I08.0 Rheumatic disorders of both mitral and aortic valves; I44.0 Atrioventricular block, first degree; Z96.652 Presence of left artificial knee joint; Z95.810 Presence of automatic (implantable) cardiac defibrillator; Z87.891 Personal history of nicotine dependence; I25.2 Old myocardial infarction; Z79.899 Other long term (current) drug therapy; Z79.51 Long term (current) use of inhaled steroids; Z88.5 Allergy status to narcotic agent; Z88.8 Allergy status to other drugs, medicaments and biological substances; Z53.20 Procedure and treatment not carried out because of patient's decision for unspecified reasons
CPT/HCPCS: 36415; 71046; 80053; 80061; 82550; 82553; 83735; 84132; 84484; 85025; 85027; 85610; 85730; 93005; 93306; 93458; 93880; 96365; 96366; 96376; 99291

== ENCOUNTER → 2018-05-06 | Day surgery (SDC) | payer MEDICARE, BC ==
--- NOTE | 2018-04-23 09:44 | P.CARDCATH ---
Date of Procedure: 04/18/18 Preoperative Diagnosis: Non-STEMI Postoperative Diagnosis: Significant disease involving the graft to the OM branch Procedure(s) Performed: Left heart catheterization without left ventriculography Description of Procedure: HISTORY: This is a 82-year-old gentleman with history of ischemic cardiomyopathy status post biventricular defibrillator implantation and previous bypass surgery who was admitted to the hospital with chest pain and positive troponins suggestive of non-STEMI. Patient is advised to have a cardiac catheterization. CONSENT:I have discussed the risks, benefits and alternative therapies for the above-mentioned procedure and for both sedation/analgesia as well as necessary blood product administration, if indicated, as they pertain to this patient. The patient has indicated understanding and acceptance of the risks and procedures discussed. PROCEDURE: Patient was brought to the lab in a fasting state. Patient was given some IV sedation. The right groin is infiltrated with lidocaine and right femoral artery was entered using Seldinger technique. A 6-Pakistani catheter was left in place and selective coronary arteriography and selective injection of the vein graft to the RCA, CASE graft to LAD and vein graft to the OM branch was performed. Patient tolerated the procedure well. Patient had extensive calcification of the femoral artery. No immediate complications were noted and patient was transferred to [facility] in a stable condition. Patient is waiting to be evaluated by Dr. Jeffries for further intervention Conscious Sedation: Versed 1mg Fentanyl 50 g Duration 38 minutes HEMODYNAMICS:. The aortic pressure is 140/70. SELECTIVE CORONARY ARTERIOGRAPHY: LEFT MAIN: Not selectively engaged. The left main is calcified and has diffuse disease and total occlusion of the major vessels proximally THE LEFT ANTERIOR DESCENDING CORONARY ARTERY: Totally occluded in the proximal portion preceded by a tight lesion before the diagonal THE LEFT CIRCUMFLEX AND IS CORONARY ARTERY: occluded in the proximal portion THE RIGHT CORONARY ARTERY: Totally occluded in the proximal portion. It THE VEIN GRAFT TO THE RCA: The graft is large in caliber with diffuse ectatic changes. The proximal and distal anastomosis are patent. There doesn't seem to be hemodynamically significant lesion in the graft. The distal RCA is free of occlusive disease. The vein graft to the OM BRANCH: This is a again large caliber vessel. There appears to be about 70-80% stenosis of the ostium in the proximal portion of the graft. The distal anastomosis stable. Rest of the body is free of any significant occlusive disease. The OM branches free of occlusive disease. THE CASE GRAFT TO THE LAD: The CASE graft to the LAD is patent throughout its length and also at the distal anastomosis. The LAD is free of occlusive disease, be and anastomotic site LEFT VENTRICULOGRAPHY: Not performed FINAL IMPRESSION:. Significant lesion involving the ostium in the proximal portion of the vein graft to the OM branch. The vein graft to the RCA is free of occlusive disease of significance. The CASE graft to the LAD is patent. All cabazon vessels are totally occluded proximally. PLAN: Maximum medical therapy. Consideration to be given for possible stenting of the vein graft to the circumflex. The patient is being evaluated by Dr. Jeffries PROGNOSIS: Guarded
[2018-04-26 15:32] VITALS: BMI 27.1
[~2018-05-06] MED LIST: ACETAMINOPHEN TAB 325 MG TAB ONE; ACETAMINOPHEN TAB 325 MG TAB PO PRN; ADENOSINE 90 MG in SODIUM CHLORIDE 0.9% 60 ML IVP ONE; ALPRAZolam 0.5 MG TAB PO PRN; ASPIRIN 325 MG TAB PO STA; ATORVASTATIN 80 MG TAB PO STA; BIVALIRUDIN 250 MG in SODIUM CHLORIDE 0.9% 40 ML IV ONE; BIVALIRUDIN BOLUS 250 MG/50 ML IV ONE; CARVEDILOL 12.5 MG TAB PO STA; IOPAMIDOL-370 125ML BTL INJ ONE; LIDOCAINE 1% INJ 10MG/ML (20 ML MDV) SQ ONE; MIDAZOLAM 2 MG/2 ML VIAL IV ONE; NITROGLYCERIN SL TABS 0.4 MG TAB SUBLINGUAL PRN; RX INFO: IV CONTRAST WAS GIVEN 1 EACH MISC MISCELLANE PRN; SODIUM CHLORIDE 0.9% 1,000 ML IV SCH; SODIUM CHLORIDE 0.9% 1,000 ML in EMPTY BAG 1 BAG IV ONE; amLODIPine 5 MG TAB ONE; amLODIPine 5 MG TAB PO STA; hydrALAZINE HCL 50 MG TAB PO STA
[2018-05-06 07:04] VITALS: RESP 18
--- NOTE | 2018-05-06 09:14 | AN ---
ANGIOGRAPHY REPORT FRACTIONAL FLOW RESERVE: DATE OF SERVICE: 05/06/2018 PERFORMING PHYSICIAN: Homer Bonilla MD. PROCEDURE PERFORMED: Fractional flow reserve of the SVG to left circumflex. INDICATION: This is a pleasant 82-year-old gentleman who sees Dr. Fairchild in the office as an outpatient with a known history of coronary artery disease and prior coronary artery bypass grafting who was experiencing symptoms of chest discomfort. He underwent a heart catheterization by Dr. Fairchild and that revealed intermediate disease involving the SVG to left circumflex. Because of that, he was scheduled today to undergo an FFR of that graft. APPROACH: Left common femoral artery. COMPLICATION: None. LEVEL OF SEDATION: Moderate with a sedation length of 20 minutes. PROCEDURE DESCRIPTION: After obtaining an informed consent, the patient was brought to the cardiac field laborer. The left common femoral artery was cannulated using micropuncture technique, the micropuncture wire passed easily, then I placed a 6-Surinamese sheath in the left common femoral arteries. After that, I did start anticoagulation using Angiomax. Subsequently, after zeroing the Doppler wire and equalizing between the Doppler wire and the guiding catheter which was an LCB guide catheter, we did an FFR per IV adenosine infusion and the FFR came in to be 0.96, which is nonischemic. The procedure was completed without any complication. CONCLUSION: 1. Intermediate disease involving the proximal portion of the SVG to left circumflex. 2. Fractional flow reserve, FFR of that graft was performed and came in to be nonischemic at 0.96. POSTPROCEDURE MANAGEMENT: 1. Maximize medical treatment. 2. Follow up with the patient. MMODL / IJN: [id number] /
[2018-05-06 09:18] VITALS: TEMP 97.8
[2018-05-06] MEDS: ALPRAZolam 0.25 MG TAB PO PRN ×2 (12:11→16:19)
[2018-05-06 18:34] VITALS: BP 185/82; PULSE 69
== END ==
LOC: CATHCVL 06:20
PROVIDERS: ATTEND Internal Medicine Interventional Cardiology
DX: I25.710 Atherosclerosis of autologous vein coronary artery bypass graft(s) with unstable angina pectoris (principal); I25.110 Atherosclerotic heart disease of native coronary artery with unstable angina pectoris; I25.84 Coronary atherosclerosis due to calcified coronary lesion; Z95.1 Presence of aortocoronary bypass graft; I10 Essential (primary) hypertension; F17.210 Nicotine dependence, cigarettes, uncomplicated; E78.5 Hyperlipidemia, unspecified; I25.5 Ischemic cardiomyopathy; Z95.810 Presence of automatic (implantable) cardiac defibrillator; Z79.02 Long term (current) use of antithrombotics/antiplatelets; Z79.82 Long term (current) use of aspirin; Z79.1 Long term (current) use of non-steroidal anti-inflammatories (NSAID); Z79.899 Other long term (current) drug therapy; Z88.8 Allergy status to other drugs, medicaments and biological substances
CPT/HCPCS: 93571; 93455; C1887; C1769 ×3; C1894; J2250; J2001; J0583; J0153; Q9967; 93454